=== PATIENT | male | born 2000 | race American Indian/Alaskan Native ===

== ENCOUNTER 2021-04-07 15:34 | Inpatient (IN) | payer SELFPAY ==
[2021-04-07] MEDS ORDERED: LORazepam 2 MG/ML VIAL ONE (15:59)
[2021-04-07] MEDS ORDERED: HALOPERIDOL LACTATE 5 MG/1 ML INJ ONE (15:59)
[2021-04-07] MEDS ORDERED: diphenhydrAMINE 50 MG/ML VIAL ONE (15:59)
[2021-04-07] MEDS ORDERED: diphenhydrAMINE 50 MG/ML VIAL IV ONE (16:07)
[2021-04-07] MEDS ORDERED: ZIPRASIDONE MESYLATE 20 MG VIAL IM ONE ×2 (16:07)
[2021-04-07] MEDS ORDERED: HALOPERIDOL LACTATE 5 MG/1 ML INJ IM PRN (16:07)
[2021-04-07] MEDS ORDERED: levETIRAcetam 1000 MG/NS 0.75% 1,000 MG/100 ML BAG IV ONE (16:07)
--- NOTE | 2021-04-07 16:08 | Emergency Department Report ---
ED General Adult HPI - General Chief complaint: Psych Stated complaint: psych Time Seen by Provider: 04/07/21 16:05 Source: patient, EMS (Verbal report received from emergency medical services. My EMS disc) Mode of arrival: Wheelchair Limitations: Altered Mental Status, Other (Psychosis) - History of Present Illness Initial comments: Patient is a 20-year-old gentleman. He is not known to myself previously. He is brought to the hospital by emergency medical services with an EMS articulated complaint of convulsions, and erratic behavior. EMS reports to myself that they were called for patient having nonspecific convulsive behavior. They report normal Accu-Chek in the field, and report that the patient is moving 4 extremities in the field, and protecting airway. In the emergency room, patient witnessed by myself and multiple staff members to have multiple writhing, and convulsive events. These entailed the patient twisting around the stretcher, pulling off leads, almost falling off onto the floor, and did not respond to verbal techniques, show of force, or chemical restraint. Patient advised to stop shaking, stop moving, as he represents a danger to himself and other people Patient was medicated initially with Haldol, Ativan, and Benadryl. He still continued to writhe, shake around, have intermittent episodes of cessation, in which he would communicate with ER staff, and then began to writhe and twist around in his ER stretcher He was then medicated with 20 mg of Geodon. In spite of this, he continued to writhe around, pull at leads, almost falling off of the stretcher, and in spite of being informed and requested to stop this activity, would not stop. The patient does not demonstrate decision-making capacity, and is clearly a danger to himself and others, as he is almost falling off of the stretcher, and requiring multiple individuals to restrain him physically, as he is pulling off leads, and thrashing and kicking at ER staff members. Given history of convulsive events, with intermittent periods of lucidity, uncertainty as to whether or not this patient has a toxic metabolic encephalopathy, intracranial hemorrhage, or time sensitive overdose, decision made to secure airway, to allow for acquisition of time sensitive diagnostic studies. The patient is thus intubated emergently for airway protection The patient was intubated without obvious complication. The patient presented initially as disorganized and psychotic, lacking decision- making capacity, and is not of sound mind. Given presentation involving erratic behavior, intermittent convulsions, lack of decision-making capacity, and need for acquisition of time sensitive diagnostic studies to exclude time sensitive medical conditions, patient required that airway be secured, in order to allow for therapeutic and diagnostic interventions to take place -: unknown - Related Data Allergies Allergy/AdvReac Type Severity Reaction Status Date / Time No Known Allergies Allergy Verified 04/07/21 16:02 ED Review of Systems ROS: Stated complaint: HIGH BLOOG SUGAR/PSYCHIATRIC BEHAVIOR Other details as noted in HPI Comment: Unobtainable due to pts medical conditions ED Physical Exam - General Limitations: Other (Psychosis, disorganized behavior) General appearance: anxious - Head Head exam: Present: atraumatic, normocephalic - Eye Eye exam: Present: normal appearance, PERRL, EOMI. Absent: nystagmus - ENT ENT exam: Present: normal exam, normal orophraynx, mucous membranes moist, normal external ear exam - Neck Neck exam: Present: normal inspection, full ROM. Absent: tenderness, meningismus - Respiratory Respiratory exam: Present: normal lung sounds bilaterally. Absent: respiratory distress, wheezes, rales, rhonchi, stridor, decreased breath sounds - Cardiovascular Cardiovascular Exam: Present: tachycardia, normal heart sounds. Absent: bradycardia, irregular rhythm, systolic murmur, diastolic murmur, rubs, gallop - GI/Abdominal GI/Abdominal exam: Present: soft, normal bowel sounds. Absent: distended, tenderness, guarding, rebound, rigid, pulsatile mass - Rectal Rectal exam: Present: normal inspection - exam: Present: normal inspection External exam: Present: normal external exam - Extremities Exam Extremities exam: Present: normal inspection, full ROM, other (2+ pulses noted in the bilateral upper and lower extremities. There is no palpable cord. negative Homans sign. Muscular compartments are soft. The pelvis is stable.). Absent: pedal edema, calf tenderness - Back Exam Back exam: Present: normal inspection, full ROM. Absent: tenderness, CVA tenderness (R), CVA tenderness (L), paraspinal tenderness, vertebral tenderness - Neurological Exam Neurological exam: Present: altered, other (There is no facial droop. The tongue is midline. 5 out of 5 strength in 4 extremities). Absent: motor sensory deficit - Psychiatric Psychiatric exam: Present: agitated, anxious - Skin Skin exam: Present: warm, dry, intact, normal color. Absent: rash ED Course Vital Signs 04/07/21 04/07/21 04/07/21 16:00 16:06 16:33 Temperature 99.2 F Pulse Rate 132 H 116 H Respiratory 22 17 Rate Blood Pressure 130/83 Blood Pressure 117/83 [Left] O2 Sat by Pulse 98 98 100 Oximetry 04/07/21 04/07/21 04/07/21 16:45 17:01 17:15 Temperature Pulse Rate 109 H 108 H 132 H Respiratory 20 20 22 Rate Blood Pressure 96/56 114/72 119/76 Blood Pressure [Left] O2 Sat by Pulse 100 100 100 Oximetry 04/07/21 04/07/21 04/07/21 17:43 17:45 18:01 Temperature Pulse Rate 99 H 97 H Respiratory 20 20 Rate Blood Pressure 132/90 132/90 117/81 Blood Pressure [Left] O2 Sat by Pulse 100 100 100 Oximetry 04/07/21 04/07/21 04/07/21 18:15 18:31 18:45 Temperature Pulse Rate 105 H 99 H 90 Respiratory 20 19 20 Rate Blood Pressure 131/91 118/74 120/75 Blood Pressure [Left] O2 Sat by Pulse 100 100 100 Oximetry 04/07/21 04/07/21 04/07/21 19:01 19:15 19:31 Temperature Pulse Rate 93 H 98 H 100 H Respiratory 20 20 20 Rate Blood Pressure 117/72 109/71 114/70 Blood Pressure [Left] O2 Sat by Pulse 100 99 100 Oximetry 04/07/21 04/07/21 04/07/21 19:45 20:01 20:15 Temperature Pulse Rate 96 H 93 H 90 Respiratory 20 20 20 Rate Blood Pressure 121/73 109/71 112/69 Blood Pressure [Left] O2 Sat by Pulse 100 100 100 Oximetry 04/07/21 04/07/21 04/07/21 20:31 20:45 21:01 Temperature Pulse Rate 89 105 H 134 H Respiratory 20 12 16 Rate Blood Pressure 122/79 142/89 143/99 Blood Pressure [Left] O2 Sat by Pulse 100 100 100 Oximetry 04/07/21 04/07/21 04/07/21 21:15 21:31 21:43 Temperature Pulse Rate 109 H 113 H 109 H Respiratory 20 20 Rate Blood Pressure 126/80 113/70 102/58 Blood Pressure [Left] O2 Sat by Pulse 100 100 100 Oximetry 04/07/21 04/07/21 04/07/21 21:45 22:00 22:01 Temperature 98.7 F Pulse Rate 105 H 110 H Respiratory 20 20 Rate Blood Pressure 102/58 105/59 Blood Pressure [Left] O2 Sat by Pulse 100 100 Oximetry 04/07/21 04/07/21 04/07/21 22:15 22:31 22:45 Temperature Pulse Rate 108 H 105 H 102 H Respiratory 20 20 20 Rate Blood Pressure 112/73 121/79 109/69 Blood Pressure [Left] O2 Sat by Pulse 100 100 100 Oximetry 04/07/21 04/07/21 04/07/21 23:01 23:15 23:31 Temperature Pulse Rate 104 H 102 H 105 H Respiratory 20 20 20 Rate Blood Pressure 108/72 109/72 110/70 Blood Pressure [Left] O2 Sat by Pulse 100 100 100 Oximetry 04/07/21 23:45 Temperature Pulse Rate 102 H Respiratory 20 Rate Blood Pressure 107/65 Blood Pressure [Left] O2 Sat by Pulse 100 Oximetry - Reevaluation(s) Reevaluation #1: 04/07/21 18:38 Differential diagnosis, including but not limited to: Seizure, psychogenic seizure, intracranial hemorrhage, electrolyte derangement, thyroid derangement, toxic encephalopathy, metabolic encephalopathy, pneumonia, urinary tract infection Partial seizure, large vessel occlusion Assessment and plan: 20-year-old gentleman presenting with episodes of intermittent convulsive behavior, followed by resolution, with conversant intervals, lacking decision-making capacity, and appropriate mental status, requiring intubation for acquisition of time sensitive diagnostic studies, and execution/implementation of necessary therapeutic interventions. CT scan of the brain, CT angiogram head and neck negative for acute findings. Laboratory studies thus far unremarkable, with exception of mild dehydration, elevated CK, hypokalemia, and the presence of marijuana in urine toxicology screen. Urinalysis nonactionable, antibiotics not required, chest x-ray clear. Patient to be admitted to the medical service/critical care unit for supportive care, contacted neurology on-call, Dr. Bay, discussed the patient's history, physical, overall plan of care, and clinical impression. Her recommendations are reviewed and appreciated. Contacted critical care physician on-call, Dr. Avila, who will follow in consultation, and arrange admission to the intensive care unit. Hospital physician, Dr. Bean, to admit patient to the medical service. IV fluids, potassium supplementation, Keppra load, propofol and fentanyl for sedation 04/07/21 19:03 Patient's sister Jane CABRERA ISABEL [phone], patient sister updated on plan of care, diagnostic studies, and clinical impression. She articulated understanding. All questions answered. - Intubation Sedative: Etomidate Mg Given: 20 Paralytic: Rocuronium Mg Given: 100 Laryngoscope: fiberoptic video scope Size: 4 Assist Device Used: fiberoptic device ET Tube Size: 7.5 Tube Secured Depth (cm): 23 Tube Secured Location: teeth Tube Placement Confirmation: visualized tube passing t, equal breath sounds bilat, no breath sounds over epi, confirmation by capnometr Patient Tolerated Procedure: well Intubation Complications: none Additional Comments: Patient induced with 20 mg of etomidate, paralyzed with 100 mg of rocuronium. Initial IV infiltrated, therefore, these medications required ordering twice. Patient placed on cardiac rehab nurse, pulse oximetry, blood pressure monitoring, and nasal cannula oxygen at 15 L/min. He also receives [id number] ventilation simultaneously. After induction and paralysis, video laryngoscopy performed with a curved S4 blade, and a 7.5 endotracheal tube was inserted into the trachea under direct visualization. There is appropriate end-tidal capnography color change. There were no obvious complications. Patient tolerated the procedure well. ED Medical Decision Making - Lab Data Result diagrams: 04/07/21 16:28 04/07/21 16:28 Vital Signs 04/07/21 16:45 Pulse Rate 109 H Blood Pressure 96/56 O2 Sat by Pulse 100 Oximetry Lab Results 04/07/21 04/07/21 04/07/21 Range/Units 15:51 16:28 16:28 WBC 7.2 (4.5-11.0) K/mm3 RBC 5.06 H (3.65-5.03) M/mm3 Hgb 13.3 (11.8-15.2) gm/dl Hct 42.2 (35.5-45.6) % MCV 83 L (84-94) fl MCH 26 L (28-32) pg MCHC 32 (32-34) % RDW 14.7 (13.2-15.2) % Plt Count 183 (140-440) K/mm3 Lymph % (Auto) 6.0 L (13.4-35.0) % [place] % (Auto) 7.4 H (0.0-7.3) % Eos % (Auto) 1.7 (0.0-4.3) % Baso % (Auto) 0.2 (0.0-1.8) % Lymph # (Auto) 0.4 L (1.2-5.4) K/mm3 [place] # (Auto) 0.5 (0.0-0.8) K/mm3 Eos # (Auto) 0.1 (0.0-0.4) K/mm3 Baso # (Auto) 0.0 (0.0-0.1) K/mm3 Seg Neutrophils % 84.7 H (40.0-70.0) % Seg Neutrophils # 6.1 (1.8-7.7) K/mm3 Sodium 139 (137-145) mmol/L Potassium 3.4 L (3.6-5.0) mmol/L Chloride 103.2 (98-107) mmol/L Carbon Dioxide 19 L (22-30) mmol/L Anion Gap 20 mmol/L BUN 8 L (9-20) mg/dL Creatinine 0.9 (0.8-1.3) mg/dL Estimated GFR > 60 ml/min BUN/Creatinine Ratio 9 % Glucose 89 (75-100) mg/dL POC Glucose 106 H (70-105) mg/dL Calcium 8.9 (8.4-10.2) mg/dL Magnesium 1.70 (1.7-2.3) mg/dL Total Bilirubin 0.20 (0.1-1.2) mg/dL AST 21 (5-40) units/L ALT 19 (7-56) units/L Alkaline Phosphatase 162 H (35-129) units/L Total Creatine Kinase 484 H (55-170) units/L Total Protein 7.1 (6.3-8.2) g/dL Albumin 4.6 (3.9-5) g/dL Albumin/Globulin Ratio 1.8 % TSH (0.270-4.200) mlU/mL Urine Color (Yellow) Urine Turbidity (Clear) Urine pH (5.0-7.0) Ur Specific [place] (1.003-1.030) Urine Protein (Negative) mg/dL Urine Glucose (UA) (Negative) mg/dL Urine Ketones (Negative) mg/dL Urine Blood (Negative) Urine Nitrite (Negative) Urine Bilirubin (Negative) Urine Urobilinogen (<2.0) mg/dL Ur Leukocyte Esterase (Negative) Urine WBC (Auto) (0.0-6.0) /HPF Urine RBC (Auto) (0.0-6.0) /HPF U Epithel Cells (Auto) (0-13.0) /HPF Urine Mucus /HPF Salicylates (2.8-20.0) mg/dL Urine Opiates Screen Urine Methadone Screen Acetaminophen (10.0-30.0) ug/mL Ur Barbiturates Screen Ur Phencyclidine Scrn Ur Amphetamines Screen U Benzodiazepines Scrn Urine Cocaine Screen U Marijuana (THC) Screen Drugs of Abuse Note Plasma/Serum Alcohol (0-0.07) % 04/07/21 04/07/21 04/07/21 Range/Units 16:28 16:28 16:28 WBC (4.5-11.0) K/mm3 RBC (3.65-5.03) M/mm3 Hgb (11.8-15.2) gm/dl Hct (35.5-45.6) % MCV (84-94) fl MCH (28-32) pg MCHC (32-34) % RDW (13.2-15.2) % Plt Count (140-440) K/mm3 Lymph % (Auto) (13.4-35.0) % [place] % (Auto) (0.0-7.3) % Eos % (Auto) (0.0-4.3) % Baso % (Auto) (0.0-1.8) % Lymph # (Auto) (1.2-5.4) K/mm3 [place] # (Auto) (0.0-0.8) K/mm3 Eos # (Auto) (0.0-0.4) K/mm3 Baso # (Auto) (0.0-0.1) K/mm3 Seg Neutrophils % (40.0-70.0) % Seg Neutrophils # (1.8-7.7) K/mm3 Sodium (137-145) mmol/L Potassium (3.6-5.0) mmol/L Chloride (98-107) mmol/L Carbon Dioxide (22-30) mmol/L Anion Gap mmol/L BUN (9-20) mg/dL Creatinine (0.8-1.3) mg/dL Estimated GFR ml/min BUN/Creatinine Ratio % Glucose (75-100) mg/dL POC Glucose (70-105) mg/dL Calcium (8.4-10.2) mg/dL Magnesium (1.7-2.3) mg/dL Total Bilirubin (0.1-1.2) mg/dL AST (5-40) units/L ALT (7-56) units/L Alkaline Phosphatase (35-129) units/L Total Creatine Kinase (55-170) units/L Total Protein (6.3-8.2) g/dL Albumin (3.9-5) g/dL Albumin/Globulin Ratio % TSH 1.370 (0.270-4.200) mlU/mL Urine Color (Yellow) Urine Turbidity (Clear) Urine pH (5.0-7.0) Ur Specific [place] (1.003-1.030) Urine Protein (Negative) mg/dL Urine Glucose (UA) (Negative) mg/dL Urine Ketones (Negative) mg/dL Urine Blood (Negative) Urine Nitrite (Negative) Urine Bilirubin (Negative) Urine Urobilinogen (<2.0) mg/dL Ur Leukocyte Esterase (Negative) Urine WBC (Auto) (0.0-6.0) /HPF Urine RBC (Auto) (0.0-6.0) /HPF U Epithel Cells (Auto) (0-13.0) /HPF Urine Mucus /HPF Salicylates < 0.3 L (2.8-20.0) mg/dL Urine Opiates Screen Urine Methadone Screen Acetaminophen 5.0 L (10.0-30.0) ug/mL Ur Barbiturates Screen Ur Phencyclidine Scrn Ur Amphetamines Screen U Benzodiazepines Scrn Urine Cocaine Screen U Marijuana (THC) Screen Drugs of Abuse Note Plasma/Serum Alcohol (0-0.07) % 04/07/21 04/07/21 04/07/21 Range/Units 16:28 Unknown Unknown WBC (4.5-11.0) K/mm3 RBC (3.65-5.03) M/mm3 Hgb (11.8-15.2) gm/dl Hct (35.5-45.6) % MCV (84-94) fl MCH (28-32) pg MCHC (32-34) % RDW (13.2-15.2) % Plt Count (140-440) K/mm3 Lymph % (Auto) (13.4-35.0) % [place] % (Auto) (0.0-7.3) % Eos % (Auto) (0.0-4.3) % Baso % (Auto) (0.0-1.8) % Lymph # (Auto) (1.2-5.4) K/mm3 [place] # (Auto) (0.0-0.8) K/mm3 Eos # (Auto) (0.0-0.4) K/mm3 Baso # (Auto) (0.0-0.1) K/mm3 Seg Neutrophils % (40.0-70.0) % Seg Neutrophils # (1.8-7.7) K/mm3 Sodium (137-145) mmol/L Potassium (3.6-5.0) mmol/L Chloride (98-107) mmol/L Carbon Dioxide (22-30) mmol/L Anion Gap mmol/L BUN (9-20) mg/dL Creatinine (0.8-1.3) mg/dL Estimated GFR ml/min BUN/Creatinine Ratio % Glucose (75-100) mg/dL POC Glucose (70-105) mg/dL Calcium (8.4-10.2) mg/dL Magnesium (1.7-2.3) mg/dL Total Bilirubin (0.1-1.2) mg/dL AST (5-40) units/L ALT (7-56) units/L Alkaline Phosphatase (35-129) units/L Total Creatine Kinase (55-170) units/L Total Protein (6.3-8.2) g/dL Albumin (3.9-5) g/dL Albumin/Globulin Ratio % TSH (0.270-4.200) mlU/mL Urine Color Yellow (Yellow) Urine Turbidity Cloudy (Clear) Urine pH 6.0 (5.0-7.0) Ur Specific [place] 1.021 (1.003-1.030) Urine Protein 100 mg/dl (Negative) mg/dL Urine Glucose (UA) Neg (Negative) mg/dL Urine Ketones Neg (Negative) mg/dL Urine Blood Neg (Negative) Urine Nitrite Neg (Negative) Urine Bilirubin Neg (Negative) Urine Urobilinogen < 2.0 (<2.0) mg/dL Ur Leukocyte Esterase Neg (Negative) Urine WBC (Auto) 2.0 (0.0-6.0) /HPF Urine RBC (Auto) 5.0 (0.0-6.0) /HPF U Epithel Cells (Auto) 1.0 (0-13.0) /HPF Urine Mucus 2+ /HPF Salicylates (2.8-20.0) mg/dL Urine Opiates Screen Negative Urine Methadone Screen Negative Acetaminophen (10.0-30.0) ug/mL Ur Barbiturates Screen Positive Ur Phencyclidine Scrn Negative Ur Amphetamines Screen Negative U Benzodiazepines Scrn Negative Urine Cocaine Screen Negative U Marijuana (THC) Screen Positive Drugs of Abuse Note Disclamer Plasma/Serum Alcohol < 0.01 (0-0.07) % - EKG Data -: EKG Interpreted by [place] EKG shows normal: sinus rhythm Rate: tachycardia - EKG Data When compared to previous EKG there are: previous EKG unavailable 04/07/21 18:29 The EKG is interpreted at 16: 54 Sinus rhythm, tachycardia, rate 125 bpm. Rightward axis deviation. Normal P wave axis. Early repolarization. Abnormal EKG. Not a STEMI. There is no prior for comparison. - Radiology Data Radiology results: pending, report reviewed, image reviewed CT HEAD WITHOUT CONTRAST INDICATION / CLINICAL INFORMATION: Medical Clearance Psych. TECHNIQUE: Axial imaging performed from the skull apex through the skull base without the use of contrast. Sagittal and coronal reformatted images. All CT scans at this location are performed using CT dose reduction for ALARA by means of automated exposure control. COMPARISON: None available. FINDINGS: CEREBRAL PARENCHYMA: No significant abnormality. No acute territorial infarct. HEMORRHAGE: None. EXTRA-AXIAL SPACES: Normal in size and morphology for the patient's age. VENTRICULAR SYSTEM: Normal in size and morphology for the patient's age. MIDLINE SHIFT OR HERNIATION: None. CEREBELLUM / BRAINSTEM: No significant abnormality. CALVARIUM: No significant abnormality. ORBITS: Normal as visualized. PARANASAL SINUSES / MASTOID AIR CELLS: Normal as visualized. SOFT TISSUES of HEAD: No significant abnormality. ADDITIONAL FINDINGS: None. I MPRESSION: No acute intracranial abnormality. Signer Name: Baltazar Muñiz Jr, MD Signed: 04/07/2021 5:04 PM Workstation Name: [id number] CT angio neck INDICATION / CLINICAL INFORMATION: 20 years Male; ams, convulsive events [id number] 100ml. TECHNIQUE: Thin cut axial images obtained through the head during IV bolus contrast administration. Sagittal, coronal, and 3 plane MIP reconstructions performed by the technologist. NASCET type criteria used evaluate stenoses. All CT scans at this location are performed using CT dose reduction for ALARA by means of automated exposure control. . COMPARISON: None available. FINDINGS: ARCH: Normal aortic arch branching suggested. CAROTID ARTERIES: The visualized common and internal carotid arteries are widely patent. VERTEBRAL ARTERIES: Codominant vertebral system seen. No significant stenosis appreciated. ADDITIONAL FINDINGS: Patient is intubated. There are secretions in the naso and oropharynx. NG tube is in place. IMPRESSION: 1. No significant stenosis appreciated on this CTA of the neck. 2. Note, this constellation of studies does not exclude ischemia. Follow-up with diffusion imaging by MRI, as clinically warranted. Signer Name: Nikita Torre MD, III Signed: 04/07/2021 5:[address] angio head INDICATION / CLINICAL INFORMATION: 20 years Male; ams, convulsive events [id number] 100ml. TECHNIQUE: Thin cut axial images obtained through the head during IV bolus contrast administration. Sagittal, coronal, and 3 plane MIP reconstructions performed by the technologist. NASCET type criteria used evaluate stenoses. Automated exposure control utilized for radiation reduction purposes. . COMPARISON: None available. FINDINGS: INTERNAL CAROTID ARTERIES: No significant narrowing appreciated. VERTEBROBASILAR SYSTEM: No significant na rrowing appreciated. DISTAL BRANCHES: Distal branches of the anterior, middle, and posterior cerebral arteries are fairly symmetric in appearance and number. ANEURYSM: None identified. ADDITIONAL FINDINGS: Patient is intubated. NG tube is in place. IMPRESSION: No significant abnormality on this CTA of the head. Signer Name: Nikita Torre MD, III Signed: 04/07/2021 5:09 PM Workstation Name: [id number] CHEST 1 VIEW 04/07/2021 4:36 PM INDICATION / CLINICAL INFORMATION: ETT placement. COMPARISON: None available. FINDINGS: SUPPORT DEVICES: Endotracheal tube terminates approximately 3.8 cm above lopez. HEART / MEDIASTINUM: No significant abnormality. LUNGS / PLEURA: No significant pulmonary or pleural abnormality. No pneumothorax. ADDITIONAL FINDINGS: No significant additional findings. IMPRESSION: 1. Endotracheal tube in expected position. Signer Name: Nishant Ramos MD Signed: 04/07/2021 3:51 PM Workstation Name: [email or web address] Critical Care Time: Yes Critical care time in (mins) excluding proc time.: 74 Critical care attestation.: If time is entered above; I have spent that time in minutes in the direct care of this critically ill patient, excluding procedure time. Critical Care Time: Critical care time includes multiple bedside reevaluations, interpretation of laboratory studies, radiology studies, discussion with multiple consulting services, including hospital medicine, critical care, neurology. This does not include procedure time ED Disposition Clinical Impression: Convulsion, Elevated CK, Hypokalemia, Dehydration, Acute encephalopathy Disposition: 09 ADMITTED INPATIENT Is pt being admited?: Yes Does the pt Need Aspirin: No Condition: Critical
[2021-04-07] MEDS: LORazepam 2 MG/ML VIAL IM PRN ×2 (16:10→21:03)
[2021-04-07] MEDS ORDERED: ROCURONIUM 50 MG/5 ML INJ IV ONE ×3 (16:22→16:32)
[2021-04-07] MEDS ORDERED: ETOMIDATE 20 MG/10 ML INJ IV ONE ×3 (16:24→16:32)
[2021-04-07] MEDS ORDERED: SODIUM CHLORIDE 0.9% 1000 ML 1,000 ML IV ONE (16:29)
[2021-04-07] MEDS ORDERED: LIP THERAPY VASELINE TP PRN (16:29)
[2021-04-07] MEDS ORDERED: fentaNYL 100 MCG/2 ML INJ IV PRN (16:29)
[2021-04-07] MEDS ORDERED: MINERAL OIL/PETROLATUM, WHITE OPHTH OINT 3.5 GM OU PRN (16:29)
[2021-04-07 16:50] LABS: Basophils % (Auto) 0.2 % (0.0-1.8); Eosinophils # (Auto) 0.1 K/mm3 (0.0-0.4); Eosinophils % (Auto) 1.7 % (0.0-4.3); Hematocrit 42.2 % (35.5-45.6); Hemoglobin 13.3 gm/dl (11.8-15.2); Lymphocytes # (Auto) 0.4 K/mm3 (1.2-5.4); Mean Corpuscular HGB Conc 32 % (32-34); Mean Corpuscular Volume 83 fl (84-94); Monocytes # (Auto) 0.5 K/mm3 (0.0-0.8); Monocytes % (Auto) 7.4 % (0.0-7.3); Platelet Count 183 K/mm3 (140-440); Red Blood Count 5.06 M/mm3 (3.65-5.03); Red Cell Distribution Width 14.7 % (13.2-15.2)
--- NOTE | 2021-04-07 16:55 | XRay Report ---
CHEST 1 VIEW 04/07/2021 4:36 PM INDICATION / CLINICAL INFORMATION: ETT placement. COMPARISON: None available. FINDINGS: SUPPORT DEVICES: Endotracheal tube terminates approximately 3.8 cm above lopez. HEART / MEDIASTINUM: No significant abnormality. LUNGS / PLEURA: No significant pulmonary or pleural abnormality. No pneumothorax. ADDITIONAL FINDINGS: No significant additional findings. IMPRESSION: 1. Endotracheal tube in expected position. Signer Name: Nishant Ramos MD Signed: 04/07/2021 4:51 PM Workstation Name: [id number]
[2021-04-07 17:04] LABS: Alanine Aminotransferase 19 units/L (7-56); Albumin 4.6 g/dL (3.9-5); BUN/Creatinine Ratio 9; Blood Urea Nitrogen 8 mg/dL (9-20); Calcium 8.9 mg/dL (8.4-10.2); Hemolysis Index 30
[2021-04-07 17:12] LABS: Bilirubin,Urine NEG (Negative); Blood,Urine NEG (Negative); Color,Urine Yellow (Yellow); Mucus,Urine 2+ /HPF; Urobilinogen,Urine < 2.0 mg/dL (<2.0)
[2021-04-07 17:13] LABS: Amphetamine Screen,Urine Negative; Benzodiazepines Screen,Urine Negative; Cocaine Screen,Urine Negative; Methadone Screen,Urine Negative; Opiate Screen,Urine Negative
--- NOTE | 2021-04-07 17:15 | Emergency Department Report ---
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
[2021-04-07 17:24] LABS: Cannabinoid Screen,Urine Positive
[2021-04-07] MEDS ORDERED: levETIRAcetam 1,000 MG in DEXTROSE 5% IN WATER 100 ML IV ONE (18:00)
--- NOTE | 2021-04-07 18:08 | Cat Scan Report ---
CT HEAD WITHOUT CONTRAST INDICATION / CLINICAL INFORMATION: Medical Clearance Psych. TECHNIQUE: Axial imaging performed from the skull apex through the skull base without the use of cont rast. Sagittal and coronal reformatted images. All CT scans at this location are performed using CT dose reduction for ALARA by means of automated exposure control. COMPARISON: None available. FINDINGS: CEREBRAL PARENCHYMA: No significant abnormality. No acute territorial infarct. HEMORRHAGE: None. EXTRA-AXIAL SPACES: Normal in size and morphology for the patient's age. VENTRICULAR SYSTEM: Normal in size and morphology for the patient's age. MIDLINE SHIFT OR HERNIATION: None. CEREBELLUM / BRAINSTEM: No significant abnormality. CALVARIUM: No significant abnormality. ORBITS: Normal as visualized. PARANASAL SINUSES / MASTOID AIR CELLS: Normal as visualized. SOFT TISSUES of HEAD: No significant abnormality. ADDITIONAL FINDINGS: None. IMPRESSION: No acute intracranial abnormality. Signer Name: Baltazar Muñiz Jr, MD Signed: 04/07/2021 6:04 PM Workstation Name: [id number]
--- NOTE | 2021-04-07 18:14 | Cat Scan Report ---
CT angio head INDICATION / CLINICAL INFORMATION: 20 years Male; ams, convulsive events [id number] 100ml. TECHNIQUE: Thin cut axial images obtained through the head during IV bolus contrast administration. S agittal, coronal, and 3 plane MIP reconstructions performed by the technologist. NASCET type criteria used evaluate stenoses. Automated exposure control utilized for radiation reduction purposes. . COMPARISON: None available. FINDINGS: INTERNAL CAROTID ARTERIES: No significant narrowing appreciated. VERTEBROBASILAR SYSTEM: No significant narrowing appreciated. DISTAL BRANCHES: Distal branches of the anterior, middle, and posterior cerebral arteries are fairly symmetric in appearance and number. ANEURYSM: None identified. ADDITIONAL FINDINGS: Patient is intubated. NG tube is in place. IMPRESSION: No significant abnormality on this CTA of the head. Signer Name: Nikita Torre MD, III Signed: 04/07/2021 6:09 PM Workstation Name: [id number]
--- NOTE | 2021-04-07 18:17 | Cat Scan Report ---
CT angio neck INDICATION / CLINICAL INFORMATION: 20 years Male; ams, convulsive events [id number] 100ml. TECHNIQUE: Thin cut axial images obtained through the head during IV bolus contrast administration. S agittal, coronal, and 3 plane MIP reconstructions performed by the technologist. NASCET type criteria used evaluate stenoses. All CT scans at this location are performed using CT dose reduction for ALAR A by means of automated exposure control. . COMPARISON: None available. FINDINGS: ARCH: Normal aortic arch branching suggested. CAROTID ARTERIES: The visualized common and internal carotid arteries are widely patent. VERTEBRAL ARTERIES: Codominant vertebral system seen. No significant stenosis appreciated. ADDITIONAL FINDINGS: Patient is intubated. There are secretions in the naso and oropharynx. NG tube i s in place. IMPRESSION: 1. No significant stenosis appreciated on this CTA of the neck. 2. Note, this constellation of studies does not exclude ischemia. Follow-up with diffusion imaging by MRI, as clinically warranted. Signer Name: Nikita Torre MD, III Signed: 04/07/2021 6:12 PM Workstation Name: [id number]
[2021-04-07 18:27] LABS: ABG Base Excess -2.2 mmol/L (-2.0-3.0); ABG HCO3 22.6 mmol/L (20.0-26.0); ABG Methemoglobin 0.4 % (0.0-1.5); ABG Oxygen Saturation 99.6 % (95.0-99.0); ABG PCO2 38.7 mm Hg; ABG PH 7.383 pH Units (7.350-7.450); ABG PO2 390.1 mm Hg (80.0-90.0)
[2021-04-07] MEDS: POTASSIUM CHLORIDE 10 MEQ 10 MEQ/100 ML BAG IV SCH ×4 (18:34→21:54)
[2021-04-07] MEDS: fentaNYL DRIP Premix 2,000 MCG/100 ML BAG IV SCH (18:35)
--- NOTE | 2021-04-07 18:42 | History and Physical Report ---
History of Present Illness Chief complaint: He wont stop shaking History of present illness: 20 YO Male with no PMH presents to ED for evaluation. Patient is intubated and on ventilatory support at the time my evaluation is unable to provide history. Patient day from EMS staff, ED staff. As per staff the patient was found to have increased confusion with concomitant witnessed seizure activity. EMS was notified and upon arrival the patient was found to be in distress and subsequent transported to [facility] for further care and evaluation of the aforementioned symptoms. The patient was seen and evaluated in the emergency department. All lab and imaging studies reviewed. Patient found to have convulsive activity after administration of antiepileptic therapy. Patient did inability to protect his airway and was subsequently intubated and placed on ventilatory support. No reports of fever, chills, chest pain, palpitation productive cough, skin rash, recent ill contacts, prolonged travel/immobility, unilateral leg swelling, calf pain, individual/family history of DVT/PE/bleeding/blood clotting disorders, or known exposure to COVID-19. No prior admission for review. No medication listed at time of admission for reconciliation. Critical care team consulted in the emergency department. Past History Past Medical History: seizures Past Surgical History: No surgical history, Other (Reviewed) Social history: single. denies: smoking, alcohol abuse Family history: hypertension Medications and Allergies Allergies Allergy/AdvReac Type Severity Reaction Status Date / Time No Known Allergies Allergy Verified 04/07/21 16:02 Active Meds: Active Medications Famotidine (Famotidine 20 Mg/2 Ml Inj) 20 mg IV BID JUSTIN Fentanyl (Fentanyl 100 Mcg/2 Ml Inj) 50 mcg IV Q10MIN PRN PRN Reason: ANALGESIA Haloperidol Lactate (Haloperidol Lactate 5 Mg/1 Ml Inj) 5 mg IM Q6HR PRN PRN Reason: Agitation Last Admin: 04/07/21 16:10 Dose: 5 mg Documented by: Hydrophilic Ointment (Lip Therapy Vaseline) 1 applic TP Q2HR PRN PRN Reason: Dry Lips Propofol (Diprivan 10 Mg/Ml) 1,000 mg in 100 mls @ 13.064 mls/hr IV TITR JUSTIN; Protocol Last Admin: 04/07/21 18:39 Dose: 50 mcg/kg/min, 21.773 mls/hr Documented by: Fentanyl Citrate (Fentanyl Drip Premix) 2,000 mcg in 100 mls @ 3.629 mls/hr IV TITR JUSTIN; Protocol Last Admin: 04/07/21 18:35 Dose: 1 mcg/kg/hr, 3.629 mls/hr Documented by: Potassium Chloride (Kcl 10meq/100ml) 10 meq in 100 mls @ 100 mls/hr IV Q1H JUSTIN Stop: 04/07/21 21:59 Last Admin: 04/07/21 18:34 Dose: 100 mls/hr Documented by: Lorazepam (Lorazepam 2 Mg/Ml Vial) 2 mg IM Q4HR PRN PRN Reason: Agitation Last Admin: 04/07/21 16:10 Dose: 2 mg Documented by: Multi-Ingred Cream/Lotion/Oil/Oint (Mineral Oil/Petrolatum, White Ophth Oint 3.5 Gm) 1 applic OU Q4HR PRN PRN Reason: Dry Eye(s) Senna/Docusate Sodium (Sennosides/Docusate Sodium 8.6/50 Mg Tab) 1 tab FEEDTUBE BID JUSTIN Review of Systems ROS unobtainable: due to endotracheal tube, due to mental status Exam - Constitutional Vitals: Temp Pulse Resp BP Pulse Ox 109 H 96/56 100 04/07/21 16:45 04/07/21 16:45 04/07/21 16:45 General appearance: Present: mild distress - EENT Eyes: Present: PERRL ENT: hearing intact, clear oral mucosa - Neck Neck: Present: supple, normal ROM - Respiratory Respiratory effort: normal Respiratory: bilateral: diminished - Cardiovascular Heart Sounds: Present: S1 & S2. Absent: rub, click - Extremities Extremities: pulses symmetrical, No edema Peripheral Pulses: within normal limits - Abdominal General gastrointestinal: Present: soft, non-tender, non-distended, normal bowel sounds Male genitourinary: Present: normal - Integumentary Integumentary: Present: clear, warm, dry - Musculoskeletal Musculoskeletal: gait normal, strength equal bilaterally - Psychiatric Psychiatric: no appropriate mood/affect, no intact judgment & insight, no memory intact, agitated - Neurologic Neurologic: CNII-XII intact, moves all extremities Results - Labs CBC & Chem 7: 04/07/21 16:28 04/07/21 16:28 Labs: Abnormal lab results 04/07/21 04/07/21 04/07/21 Range/Units 15:51 16:28 16:28 RBC 5.06 H (3.65-5.03) M/mm3 MCV 83 L (84-94) fl MCH 26 L (28-32) pg Lymph % (Auto) 6.0 L (13.4-35.0) % [place] % (Auto) 7.4 H (0.0-7.3) % Lymph # (Auto) 0.4 L (1.2-5.4) K/mm3 Seg Neutrophils % 84.7 H (40.0-70.0) % ABG pO2 (80.0-90.0) mm Hg ABG O2 Saturation (95.0-99.0) % ABG Base Excess (-2.0-3.0) mmol/L ABG Hemoglobin (14.0-18.0) gm/dl Potassium 3.4 L (3.6-5.0) mmol/L Carbon Dioxide 19 L (22-30) mmol/L BUN 8 L (9-20) mg/dL POC Glucose 106 H (70-105) mg/dL Alkaline Phosphatase 162 H (35-129) units/L Total Creatine Kinase 484 H (55-170) units/L Salicylates (2.8-20.0) mg/dL Acetaminophen (10.0-30.0) ug/mL 04/07/21 04/07/21 04/07/21 Range/Units 16:28 16:28 18:00 RBC (3.65-5.03) M/mm3 MCV (84-94) fl MCH (28-32) pg Lymph % (Auto) (13.4-35.0) % [place] % (Auto) (0.0-7.3) % Lymph # (Auto) (1.2-5.4) K/mm3 Seg Neutrophils % (40.0-70.0) % ABG pO2 390.1 H (80.0-90.0) mm Hg ABG O2 Saturation 99.6 H (95.0-99.0) % ABG Base Excess -2.2 L (-2.0-3.0) mmol/L ABG Hemoglobin 13.1 L (14.0-18.0) gm/dl Potassium (3.6-5.0) mmol/L Carbon Dioxide (22-30) mmol/L BUN (9-20) mg/dL POC Glucose (70-105) mg/dL Alkaline Phosphatase (35-129) units/L Total Creatine Kinase (55-170) units/L Salicylates < 0.3 L (2.8-20.0) mg/dL Acetaminophen 5.0 L (10.0-30.0) ug/mL Assessment and Plan - Patient Problems (1) Acute respiratory failure Current Visit: Yes Status: Acute Qualifiers: Respiratory failure complication: hypoxia Qualified Code(s): J96.01 - Acute respiratory failure with hypoxia Plan to address problem: Patient intubated and placed on ventilatory support, daily ABG, spontaneous breathing trial in a.m., wean vent as tolerated, critical care team consulted. The high probability of a clinically significant, sudden or life threatening deterioration of the [neuro, pulmonary] system(s) required my full and direct attention, intervention and personal management. The aggregate critical care time was [65] minutes. This time is in addition to time spent performing reported procedures but includes the following: [x] Data Review and interpretation [x] Patient assessment and monitoring of vital signs [x] Documentation [x] Medication orders and management (2) Status epilepticus Current Visit: Yes Status: Acute Plan to address problem: Patient treated with Keppra loading 1 g in the emergency department, Keppra therapy twice daily, supportive care, seizure precautions. (3) Acute encephalopathy Current Visit: Yes Status: Acute Plan to address problem: Supportive care, neuro check, continue medical management. CT head, CTA head/CTA neck. (4) DVT prophylaxis Current Visit: Yes Status: Acute Plan to address problem: SCDs bilateral lower extremities while in bed
[2021-04-07] MEDS ORDERED: oxyCODONE /ACETAMINOPHEN 5-325MG TAB PO PRN (18:44)
[2021-04-07] MEDS ORDERED: HYDROmorphone 1 MG/1 ML INJ IV PRN (18:44)
[2021-04-07] MEDS ORDERED: ALBUTEROL 2.5 MG/3 ML NEBU IH PRN (18:44)
[2021-04-07] MEDS ORDERED: ACETAMINOPHEN 650 MG RECT SUPP PR PRN (18:44)
[2021-04-07] MEDS: FAMOTIDINE 20 MG/2 ML INJ IV SCH (21:55)
[2021-04-07] MEDS: SENNOSIDES/DOCUSATE SODIUM 8.6/50 MG TAB FEEDTUBE SCH (21:55)
[2021-04-08] MEDS ORDERED: ROCURONIUM 50 MG/5 ML INJ IV ONE (00:24)
[2021-04-08] MEDS ORDERED: ETOMIDATE 20 MG/10 ML INJ IV ONE (00:24)
--- NOTE | 2021-04-08 04:35 | XRay Report ---
XR chest 1V ap INDICATION / CLINICAL INFORMATION: follow up respiratory failure. COMPARISON: Radiograph from yesterday. FINDINGS: SUPPORT DEVICES: Unchanged. HEART /PULMONARY VASCULATURE: Unchanged. LUNGS / PLEURA: No significant pulmonary or pleural abnormality. No pneumothorax. IMPRESSION: 1. No acute chest process. No significant interval change. Signer Name: Geremias Cruz MD Signed: 04/08/2021 4:31 AM Workstation Name: [id number]
[2021-04-08 05:23] LABS: Basophils % (Auto) 0.4 % (0.0-1.8); Eosinophils # (Auto) 0.1 K/mm3 (0.0-0.4); Eosinophils % (Auto) 1.8 % (0.0-4.3); Hematocrit 40.4 % (35.5-45.6); Hemoglobin 12.8 gm/dl (11.8-15.2); Lymphocytes # (Auto) 0.9 K/mm3 (1.2-5.4); Lymphocytes % (Auto) 14.7 % (13.4-35.0); Mean Corpuscular HGB Conc 32 % (32-34); Mean Corpuscular Volume 83 fl (84-94); Monocytes # (Auto) 0.8 K/mm3 (0.0-0.8); Monocytes % (Auto) 13.1 % (0.0-7.3); Platelet Count 173 K/mm3 (140-440); Red Blood Count 4.87 M/mm3 (3.65-5.03); Red Cell Distribution Width 14.8 % (13.2-15.2)
[2021-04-08 05:44] LABS: Alanine Aminotransferase 14 units/L (7-56); Albumin 3.9 g/dL (3.9-5); BUN/Creatinine Ratio 7; Blood Urea Nitrogen 7 mg/dL (9-20); Calcium 8.8 mg/dL (8.4-10.2); Hemolysis Index 6
[2021-04-08 06:25] LABS: ABG Base Excess -2.2 mmol/L (-2.0-3.0); ABG HCO3 22.6 mmol/L (20.0-26.0); ABG Methemoglobin 0.4 % (0.0-1.5); ABG Oxygen Saturation 96.5 % (95.0-99.0); ABG PH 7.382 pH Units (7.350-7.450); ABG PO2 81.5 mm Hg (80.0-90.0)
[2021-04-08] MEDS: FAMOTIDINE 20 MG/2 ML INJ IV SCH ×2 (09:43→21:10)
[2021-04-08] MEDS: SENNOSIDES/DOCUSATE SODIUM 8.6/50 MG TAB FEEDTUBE SCH ×2 (09:44→21:10)
--- NOTE | 2021-04-08 10:01 | Consultation ---
History of Present Illness Consult date: 04/08/21 Chief complaint: seizure History of present illness: History of present illness: 20 YO Male with no PMH presents to ED for evaluation. Patient is intubated and on ventilatory support at the time my evaluation is unable to provide history. Patient day from EMS staff, ED staff. As per staff the patient was found to have increased confusion with concomitant witnessed seizure activity. EMS was notified and upon arrival the patient was found to be in distress and subsequent transported to [facility] for further care and evaluation of the aforementioned symptoms. The patient was seen and evaluated in the emergency department. All lab and imaging studies reviewed. Patient found to have convulsive activity after administration of antiepileptic therapy. Patient did inability to protect his airway and was subsequently intubated and placed on ventilatory support. No reports of fever, chills, chest pain, palpitation productive cough, skin rash, recent ill contacts, prolonged travel/immobility, unilateral leg swelling, calf pain, individual/family history of DVT/PE/bleeding/blood clotting disorders, or known exposure to COVID-19. No prior admission for review. No medication listed at time of admission for reconciliation. Critical care team consulted in the emergency department. The patient is intubated . Some movement seen on Video. Past History Past Medical History: seizures Past Surgical History: No surgical history, Other (Reviewed) Social history: single. denies: smoking, alcohol abuse Family history: hypertension Medications and Allergies Allergies Allergy/AdvReac Type Severity Reaction Status Date / Time No Known Allergies Allergy Verified 04/07/21 16:02 Home Medications Medication Instructions Recorded Confirmed Last Taken Type Carbamazepine ER 2 - 3 cap PO QAM&QHS 04/08/21 04/08/21 Unknown History Phenytoin Sodium Extended 1 cap PO TID 04/08/21 04/08/21 Unknown History Zonisamide 3 cap PO Q24HR 04/08/21 04/08/21 Unknown History Active Meds: Active Medications Acetaminophen (Acetaminophen 650 Mg Rect Supp) 650 mg MN Q6H PRN PRN Reason: Pain MILD(1-3)/Fever >100.5/FRANCIS Albuterol (Albuterol 2.5 Mg/3 Ml Nebu) 2.5 mg IH Q3HRT PRN PRN Reason: Shortness Of Breath Dextrose (Dextrose 50% In Water (25gm) 50 Ml Syringe) 50 ml IV Q30MIN PRN; Prot ocol PRN Reason: Hypoglycemia Famotidine (Famotidine 20 Mg/2 Ml Inj) 20 mg IV BID [facility] Last Admin: 04/08/21 09:43 Dose: 20 mg Documented by: Fentanyl (Fentanyl 100 Mcg/2 Ml Inj) 50 mcg IV Q10MIN PRN PRN Reason: ANALGESIA Last Admin: 04/07/21 18:43 Dose: 50 mcg Documented by: Haloperidol Lactate (Haloperidol Lactate 5 Mg/1 Ml Inj) 5 mg IM Q6HR PRN PRN Reason: Agitation Last Admin: 04/07/21 16:10 Dose: 5 mg Documented by: Hydromorphone HCl (Hydromorphone 1 Mg/1 Ml Inj) 0.5 mg IV Q23H PRN PRN Reason: Pain , Severe (7-10) Hydrophilic Ointment (Lip Therapy Vaseline) 1 applic TP Q2HR PRN PRN Reason: Dry Lips Propofol (Diprivan 10 Mg/Ml) 1,000 mg in 100 mls @ 13.064 mls/hr IV TITR [facility]; Protocol Last Admin: 04/08/21 05:52 Dose: 40 mcg/kg/min, 17.418 mls/hr Documented by: Fentanyl Citrate (Fentanyl Drip Premix) 2,000 mcg in 100 mls @ 3.629 mls/hr IV TITR [facility]; Protocol Last Admin: 04/07/21 18:35 Dose: 1 mcg/kg/hr, 3.629 mls/hr Documented by: Lorazepam (Lorazepam 2 Mg/Ml Vial) 2 mg IM Q4HR PRN PRN Reason: Agitation Last Admin: 04/07/21 21:03 Dose: 2 mg Documented by: Multi-Ingred Cream/Lotion/Oil/Oint (Mineral Oil/Petrolatum, White Ophth Oint 3.5 Gm) 1 applic OU Q4HR PRN PRN Reason: Dry Eye(s) Oxycodone/Acetaminophen (Oxycodone /Acetaminophen 5-325mg Tab) 1 tab PO Q16H PRN PRN Reason: Pain, Moderate (4-6) Senna/Docusate Sodium (Sennosides/Docusate Sodium 8.6/50 Mg Tab) 1 tab FEEDTUBE BID [facility] Last Admin: 04/08/21 09:44 Dose: Not Given Documented by: Sodium Chloride (Sodium Chloride 0.9% 10 Ml Flush Syringe) 10 ml IV BID JUSTIN Last Admin: 04/08/21 09:44 Dose: 10 ml Documented by: Sodium Chloride (Sodium Chloride 0.9% 10 Ml Flush Syringe) 10 ml IV PRN PRN PRN Reason: LINE FLUSH Physical Examination - Vital Signs Vital Signs: Vital Signs Pulse Ox 98 04/07/21 16:00 - Physical Exam Narrative exam: The patient is intubated , Gag is present . Move extremity with Movement . Results - Laboratory Findings CBC and BMP: 04/08/21 04:19 04/08/21 04:19 Abnormal Lab Findings: Abnormal Labs 04/07/21 04/07/21 04/07/21 15:51 16:28 16:28 RBC 5.06 H MCV 83 L MCH 26 L Lymph % (Auto) 6.0 L [place] % (Auto) 7.4 H Lymph # (Auto) 0.4 L Seg Neutrophils % 84.7 H ABG pO2 ABG O2 Saturation ABG Base Excess ABG Hemoglobin Oxyhemoglobin Sodium Potassium 3.4 L Carbon Dioxide 19 L BUN 8 L POC Glucose 106 H Alkaline Phosphatase 162 H Total Creatine Kinase 484 H Salicylates Acetaminophen 04/07/21 04/07/21 04/07/21 16:28 16:28 18:00 RBC MCV MCH Lymph % (Auto) [place] % (Auto) Lymph # (Auto) Seg Neutrophils % ABG pO2 390.1 H ABG O2 Saturation 99.6 H ABG Base Excess -2.2 L ABG Hemoglobin 13.1 L Oxyhemoglobin Sodium Potassium Carbon Dioxide BUN POC Glucose Alkaline Phosphatase Total Creatine Kinase Salicylates < 0.3 L Acetaminophen 5.0 L 04/08/21 04/08/21 04/08/21 04:19 04:19 04:30 RBC MCV 83 L MCH 26 L Lymph % (Auto) [place] % (Auto) 13.1 H Lymph # (Auto) 0.9 L Seg Neutrophils % ABG pO2 ABG O2 Saturation ABG Base Excess -2.2 L ABG Hemoglobin 13.4 L Oxyhemoglobin 94.8 L Sodium 136 L Potassium Carbon Dioxide 20 L BUN 7 L POC Glucose Alkaline Phosphatase 150 H Total Creatine Kinase Salicylates Acetaminophen Assessment and Plan 1. Possible Status Epilepticus 2. EEG in Hospital . 3. Once stable MRI Brain , 4. If there is evidence of Fever consider LP . 5. Agree with Beverley for now . 6. Start Weaning Down . 7. Minimize Sedation . Follow up Dr. Hsu
--- NOTE | 2021-04-08 10:28 | Progress Note ---
Assessment and Plan Assessment and plan: This is a 20-year-old AA male with a known history of seizure admitted for witnessed seizure activities and acute respiratory failure requiring ventilatory support. Hospital Course to Date: 04/08/21- Patient is intubated and sedated. Was initially only on propofol and fentanyl gtt, RASS 0 to -1, following commands and appropriate. Attempted a SAT and SBT trial, patient appeared to have had possible seizure episodes witnessed by patient's sister who was at the bedside visiting at the time. Per patient's sister, patient was recently admitted and intubated in [place] for the same issue, records requested from [place]. Stat EEG completed, pending result. Versed gtt and IV Keppra added. Neurology on consult. Assessment and Plan #Status Epilepticus - Remains intubated and sedated - New witness seizure like activity today - Continue propofol, fentanyl - Versed gtt added, RASS goal -3 to -4 - IV Keppra started - Continue Seizure precaution #Tachycardia - ST on the monitor - Normotensive - Will continue to monitor for now - Maintain adequate perfusion - Continue rehydration with cont. IVF - Continue blood pressure monitor per protocol - Maintain MAP above 65 #Acute Respiratory Failure - Intubated in the ED on 04/07 for airway protection - Vent Setting: CMV-30%,6,20,400 - AM ABG noted - CCM consulted, appreciate recommendations - VAP bundle addressed - Aspiration precaution HOB above 30 - Daily SBT and SAT trials as tolerated per CCM - Daily ABG and CXR - Continue SPO2 monitoring for SPO2 goal above 92% #GI:NPO - Keep patient NPO for now - Continue PPI- Pepcid - Continuous IVF added #Hyponatremia #Hypokalemia- improved - Prabably due to dehyradtion - Patient presented with low K, K 3.6 this am - NA 136 this am - Cont. IVF added - Strict intake and output - Avoid nephrotoxic medications; Renally dose medications - Bowie in place, low urine output in last 24hrs 213ml - Continue IVF for now - Monitor and replace electrolytes as needed #VTE Prophylaxis - AC-Lovenox added - SCDs to bilateral lower extremities while in bed #Endo: Glycemic Control - BG check Q6hrs - No SSI at this time - Avoid Hypoglycemia The high probability of a clinically significant, sudden or life threatening deterioration of the [Neuro, Respiratory] system(s) required my full and direct attention, intervention and personal management. The aggregate critical care time was [60] minutes. This time is in addition to time spent performing reported procedures but includes the following: [x] Data Review and interpretation [x] Patient assessment and monitoring of vital signs [x] Documentation [x] Medication orders and management Disposition Plan: ICU Total Time Spent with Patient (Minutes): 60 History Interval history: Patient seen and examined at the bedside. Intubated and Sedated, pupils are brisk and reactive, following commands Hospitalist Physical - Constitutional Vitals: Temp Pulse Resp BP Pulse Ox 100.0 F H 103 H 20 111/69 99 04/08/21 03:18 04/08/21 09:00 04/08/21 09:00 04/08/21 09:00 04/08/21 09:00 General appearance: Present: no acute distress, mild distress, other (Intubated and sedated) - EENT Eyes: Present: PERRL ENT: hearing intact - Neck Neck: Present: normal ROM - Respiratory Respiratory effort: normal Respiratory: bilateral: diminished - Cardiovascular Rhythm: regular Heart Sounds: Present: S1 & S2 - Extremities Extremities: no ischemia, pulses intact, pulses symmetrical Peripheral Pulses: within normal limits - Abdominal General gastrointestinal: soft, non-tender, normal bowel sounds - Integumentary Integumentary: Present: clear, warm, dry - Psychiatric Psychiatric: cooperative - Neurologic Neurologic: moves all extremities - Allied Health Allied health notes reviewed: nursing Results - Labs CBC & Chem 7: 04/08/21 04:19 04/08/21 04:19 Labs: Laboratory Last Values WBC 6.4 K/mm3 (4.5-11.0) 04/08/21 04:19 RBC 4.87 M/mm3 (3.65-5.03) 04/08/21 04:19 Hgb 12.8 gm/dl (11.8-15.2) 04/08/21 04:19 Hct 40.4 % (35.5-45.6) 04/08/21 04:19 MCV 83 fl (84-94) L 04/08/21 04:19 MCH 26 pg (28-32) L 04/08/21 04:19 MCHC 32 % (32-34) 04/08/21 04:19 RDW 14.8 % (13.2-15.2) 04/08/21 04:19 Plt Count 173 K/mm3 (140-440) 04/08/21 04:19 Lymph % (Auto) 14.7 % (13.4-35.0) 04/08/21 04:19 [place] % (Auto) 13.1 % (0.0-7.3) H 04/08/21 04:19 Eos % (Auto) 1.8 % (0.0-4.3) 04/08/21 04:19 Baso % (Auto) 0.4 % (0.0-1.8) 04/08/21 04:19 Lymph # (Auto) 0.9 K/mm3 (1.2-5.4) L 04/08/21 04:19 [place] # (Auto) 0.8 K/mm3 (0.0-0.8) 04/08/21 04:19 Eos # (Auto) 0.1 K/mm3 (0.0-0.4) 04/08/21 04:19 Baso # (Auto) 0.0 K/mm3 (0.0-0.1) 04/08/21 04:19 Seg Neutrophils % 70.0 % (40.0-70.0) 04/08/21 04:19 Seg Neutrophils # 4.5 K/mm3 (1.8-7.7) 04/08/21 04:19 ABG pH 7.382 pH Units (7.350-7.450) 04/08/21 04:30 ABG pCO2 39.0 mm Hg 04/08/21 04:30 ABG pO2 81.5 mm Hg (80.0-90.0) 04/08/21 04:30 ABG HCO3 22.6 mmol/L (20.0-26.0) 04/08/21 04:30 ABG O2 Saturation 96.5 % (95.0-99.0) 04/08/21 04:30 ABG O2 Content 18.0 (0.0-44) 04/08/21 04:30 ABG Base Excess -2.2 mmol/L (-2.0-3.0) L 04/08/21 04:30 ABG Hemoglobin 13.4 gm/dl (14.0-18.0) L 04/08/21 04:30 ABG Carboxyhemoglobin 1.4 % (0.0-5.0) 04/08/21 04:30 ABG Methemoglobin 0.4 % (0.0-1.5) 04/08/21 04:30 Oxyhemoglobin 94.8 % (95.0-99.0) L 04/08/21 04:30 FiO2 30 % 04/08/21 04:30 Sodium 136 mmol/L (137-145) L 04/08/21 04:19 Potassium 3.6 mmol/L (3.6-5.0) 04/08/21 04:19 Chloride 103.3 mmol/L (98-107) 04/08/21 04:19 Carbon Dioxide 20 mmol/L (22-30) L 04/08/21 04:19 Anion Gap 16 mmol/L 04/08/21 04:19 BUN 7 mg/dL (9-20) L 04/08/21 04:19 Creatinine 1.0 mg/dL (0.8-1.3) 04/08/21 04:19 Estimated GFR > 60 ml/min 04/08/21 04:19 BUN/Creatinine Ratio 7 % 04/08/21 04:19 Glucose 84 mg/dL (75-100) 04/08/21 04:19 POC Glucose 75 mg/dL (70-105) 04/08/21 05:20 Calcium 8.8 mg/dL (8.4-10.2) 04/08/21 04:19 Magnesium 1.70 mg/dL (1.7-2.3) 04/07/21 16:28 Total Bilirubin 0.30 mg/dL (0.1-1.2) 04/08/21 04:19 AST 23 units/L (5-40) 04/08/21 04:19 ALT 14 units/L (7-56) 04/08/21 04:19 Alkaline Phosphatase 150 units/L (35-129) H 04/08/21 04:19 Total Creatine Kinase 484 units/L (55-170) H 04/07/21 16:28 Total Protein 6.7 g/dL (6.3-8.2) 04/08/21 04:19 Albumin 3.9 g/dL (3.9-5) 04/08/21 04:19 Albumin/Globulin Ratio 1.4 % 04/08/21 04:19 TSH 1.370 mlU/mL (0.270-4.200) 04/07/21 16:28 Urine Color Yellow (Yellow) 04/07/21 Unknown Urine Turbidity Cloudy (Clear) 04/07/21 Unknown Urine pH 6.0 (5.0-7.0) 04/07/21 Unknown Ur Specific [place] 1.021 (1.003-1.030) 04/07/21 Unknown Urine Protein 100 mg/dl mg/dL (Negative) 04/07/21 Unknown Urine Glucose (UA) Neg mg/dL (Negative) 04/07/21 Unknown Urine Ketones Neg mg/dL (Negative) 04/07/21 Unknown Urine Blood Neg (Negative) 04/07/21 Unknown Urine Nitrite Neg (Negative) 04/07/21 Unknown Urine Bilirubin Neg (Negative) 04/07/21 Unknown Urine Urobilinogen < 2.0 mg/dL (<2.0) 04/07/21 Unknown Ur Leukocyte Esterase Neg (Negative) 04/07/21 Unknown Urine WBC (Auto) 2.0 /HPF (0.0-6.0) 04/07/21 Unknown Urine RBC (Auto) 5.0 /HPF (0.0-6.0) 04/07/21 Unknown U Epithel Cells (Auto) 1.0 /HPF (0-13.0) 04/07/21 Unknown Urine Mucus 2+ /HPF 04/07/21 Unknown Salicylates < 0.3 mg/dL (2.8-20.0) L 04/07/21 16:28 Urine Opiates Screen Negative 04/07/21 Unknown Urine Methadone Screen Negative 04/07/21 Unknown Acetaminophen 5.0 ug/mL (10.0-30.0) L 04/07/21 16:28 Ur Barbiturates Screen Positive 04/07/21 Unknown Ur Phencyclidine Scrn Negative 04/07/21 Unknown Ur Amphetamines Screen Negative 04/07/21 Unknown U Benzodiazepines Scrn Negative 04/07/21 Unknown Urine Cocaine Screen Negative 04/07/21 Unknown U Marijuana (THC) Screen Positive 04/07/21 Unknown Drugs of Abuse Note Disclamer 04/07/21 Unknown Plasma/Serum Alcohol < 0.01 % (0-0.07) 04/07/21 16:28 [place]/IV: Voiding Method Indwelling Catheter Active Medications - Current Medications Current Medications: Generic Name Dose Route Start Last Admin Trade Name Freq PRN Reason Stop Dose Admin Acetaminophen 650 mg 04/07/21 18:44 Acetaminophen [address] Q6H PRN Pain MILD(1-3)/Fever >100.5/FRANCIS Albuterol 2.5 mg 04/07/21 18:44 Albuterol 2.5 Mg/3 Ml Nebu IH Q3HRT PRN Shortness Of Breath Dextrose 50 ml 04/08/21 07:36 Dextrose 50% In Water (25gm) 50 Ml Syringe IV Q30MIN PRN Hypoglycemia Protocol Famotidine 20 mg 04/07/21 22:00 04/08/21 09:43 Famotidine 20 Mg/2 Ml Inj IV 20 mg BID JUSTIN Administration Fentanyl 50 mcg 04/07/21 16:29 04/07/21 18:43 Fentanyl 100 Mcg/2 Ml Inj IV 50 mcg Q10MIN PRN Administration ANALGESIA Haloperidol Lactate 5 mg 04/07/21 16:07 04/07/21 16:10 Haloperidol Lactate 5 Mg/1 Ml Inj IM 5 mg Q6HR PRN Administration Agitation Hydromorphone HCl 0.5 mg 04/07/21 18:44 Hydromorphone 1 Mg/1 Ml Inj IV Q23H PRN Pain , Severe (7-10) Hydrophilic Ointment 1 applic 04/07/21 16:29 Lip Therapy Vaseline TP Q2HR PRN Dry Lips Propofol 1,000 mg in 100 mls @ 13.064 mls/hr 04/07/21 17:00 04/08/21 05:52 Diprivan 10 Mg/Ml IV 40 mcg/kg/min TITR JUSTIN 17.418 mls/hr Administration Protocol 30 MCG/KG/MIN Fentanyl Citrate 2,000 mcg in 100 mls @ 3.629 mls/hr 04/07/21 17:00 04/07/21 18:35 Fentanyl Drip Premix IV 1 mcg/kg/hr TITR JUSTIN 3.629 mls/hr Administration Protocol 1 MCG/KG/HR Levetiracetam 1,500 mg/ 115 mls @ 400 mls/hr 04/08/21 11:00 Dextrose IV Q12HR JUSTIN Lorazepam 2 mg 04/07/21 16:07 04/07/21 21:03 Lorazepam 2 Mg/Ml Vial IM 2 mg Q4HR PRN Administration Agitation Multi-Ingred Cream/Lotion/Oil/Oint 1 applic 04/07/21 16:29 Mineral Oil/Petrolatum, White Ophth Oint 3.5 Gm OU Q4HR PRN Dry Eye(s) Oxycodone/Acetaminophen 1 tab 04/07/21 18:44 Oxycodone /Acetaminophen 5-325mg Tab PO Q16H PRN Pain, Moderate (4-6) Senna/Docusate Sodium 1 tab 04/07/21 22:00 04/08/21 09:44 Sennosides/Docusate Sodium 8.6/50 Mg Tab FEEDTUBE Not Given BID JUSTIN Sodium Chloride 10 ml 04/07/21 22:00 04/08/21 09:44 Sodium Chloride 0.9% 10 Ml Flush Syringe IV 10 ml BID JUSTIN Administration Sodium Chloride 10 ml 04/07/21 18:44 Sodium Chloride 0.9% 10 Ml Flush Syringe IV PRN PRN LINE FLUSH
[2021-04-08] MEDS: levETIRAcetam 1,500 MG in DEXTROSE 5% IN WATER 100 ML IV SCH ×2 (11:16→21:20)
--- NOTE | 2021-04-08 11:49 | Consultation ---
History of Present Illness Consult date: 04/08/21 Requesting physician: ABHISHEK JIMENEZ Reason for consult: other (Acute Hypoxemic Respiratory Failure on MVS; Seizures) History of present illness: PULMONARY/CCM CONSULT NOTE (Full dictation # [id number]) Please see dictated notes for full details Past History Past Medical History: seizures Past Surgical History: No surgical history, Other (Reviewed) Social history: single. denies: smoking, alcohol abuse Family history: hypertension Medications and Allergies Allergies Allergy/AdvReac Type Severity Reaction Status Date / Time No Known Allergies Allergy Verified 04/07/21 16:02 Home Medications Medication Instructions Recorded Confirmed Last Taken Type Carbamazepine ER 2 - 3 cap PO QAM&QHS 04/08/21 04/08/21 Unknown History Phenytoin Sodium Extended 1 cap PO TID 04/08/21 04/08/21 Unknown History Zonisamide 3 cap PO Q24HR 04/08/21 04/08/21 Unknown History Active Meds: Active Medications Acetaminophen (Acetaminophen 650 Mg Rect Supp) 650 mg [place] Q6H PRN PRN Reason: Pain MILD(1-3)/Fever >100.5/FRANCIS Albuterol (Albuterol 2.5 Mg/3 Ml Nebu) 2.5 mg IH Q3HRT PRN PRN Reason: Shortness Of Breath Dextrose (Dextrose 50% In Water (25gm) 50 Ml Syringe) 50 ml IV Q30MIN PRN; Protocol PRN Reason: Hypoglycemia Famotidine (Famotidine 20 Mg/2 Ml Inj) 20 mg IV BID JUSTIN Last Admin: 04/08/21 09:43 Dose: 20 mg Documented by: Fentanyl (Fentanyl 100 Mcg/2 Ml Inj) 50 mcg IV Q10MIN PRN PRN Reason: ANALGESIA Last Admin: 04/07/21 18:43 Dose: 50 mcg Documented by: Haloperidol Lactate (Haloperidol Lactate 5 Mg/1 Ml Inj) 5 mg IV Q6HR PRN PRN Reason: Agitation Hydromorphone HCl (Hydromorphone 1 Mg/1 Ml Inj) 0.5 mg IV Q23H PRN PRN Reason: Pain , Severe (7-10) Hydrophilic Ointment (Lip Therapy Vaseline) 1 applic TP Q2HR PRN PRN Reason: Dry Lips Propofol (Diprivan 10 Mg/Ml) 1,000 mg in 100 mls @ 13.064 mls/hr IV TITR JUSTIN; Protocol Last Titration: 12/08/21 11:35 Dose: 0 mcg/kg/min, 0 mls/hr Documented by: Fentanyl Citrate (Fentanyl Drip Premix) 2,000 mcg in 100 mls @ 3.629 mls/hr IV TITR JUSTIN; Protocol Last Admin: 04/07/21 18:35 Dose: 1 mcg/kg/hr, 3.629 mls/hr Documented by: Levetiracetam 1,500 mg/ (Dextrose) 115 mls @ 400 mls/hr IV Q12HR [facility] Last Admin: 04/08/21 11:16 Dose: 400 mls/hr Documented by: Lorazepam (Lorazepam 2 Mg/Ml Vial) 2 mg IV Q4HR PRN PRN Reason: Agitation Multi-Ingred Cream/Lotion/Oil/Oint (Mineral Oil/Petrolatum, White Ophth Oint 3.5 Gm) 1 applic OU Q4HR PRN PRN Reason: Dry Eye(s) Oxycodone/Acetaminophen (Oxycodone /Acetaminophen 5-325mg Tab) 1 tab PO Q16H PRN PRN Reason: Pain, Moderate (4-6) Senna/Docusate Sodium (Sennosides/Docusate Sodium 8.6/50 Mg Tab) 1 tab FEEDTUBE BID [facility] Last Admin: 04/08/21 09:44 Dose: Not Given Documented by: Sodium Chloride (Sodium Chloride 0.9% 10 Ml Flush Syringe) 10 ml IV BID [facility] Last Admin: 04/08/21 09:44 Dose: 10 ml Documented by: Sodium Chloride (Sodium Chloride 0.9% 10 Ml Flush Syringe) 10 ml IV PRN PRN PRN Reason: LINE FLUSH Physical Examination Vital signs: Vital Signs Pulse Ox 98 04/07/21 16:00 Results - Laboratory Findings CBC and BMP: 04/08/21 04:19 04/08/21 04:19 ABG ABG pH 7.382 pH Units (7.350-7.450) 04/08/21 04:30 ABG pCO2 39.0 mm Hg 04/08/21 04:30 ABG pO2 81.5 mm Hg (80.0-90.0) 04/08/21 04:30 ABG O2 Saturation 96.5 % (95.0-99.0) 04/08/21 04:30 Abnormal lab findings: Abnormal Labs 04/07/21 04/07/21 04/07/21 15:51 16:28 16:28 RBC 5.06 H MCV 83 L MCH 26 L Lymph % (Auto) 6.0 L [place] % (Auto) 7.4 H Lymph # (Auto) 0.4 L Seg Neutrophils % 84.7 H ABG pO2 ABG O2 Saturation ABG Base Excess ABG Hemoglobin Oxyhemoglobin Sodium Potassium 3.4 L Carbon Dioxide 19 L BUN 8 L POC Glucose 106 H Alkaline Phosphatase 162 H Total Creatine Kinase 484 H Salicylates Acetaminophen 04/07/21 04/07/21 04/07/21 16:28 16:28 18:00 RBC MCV MCH Lymph % (Auto) [place] % (Auto) Lymph # (Auto) Seg Neutrophils % ABG pO2 390.1 H ABG O2 Saturation 99.6 H ABG Base Excess -2.2 L ABG Hemoglobin 13.1 L Oxyhemoglobin Sodium Potassium Carbon Dioxide BUN POC Glucose Alkaline Phosphatase Total Creatine Kinase Salicylates < 0.3 L Acetaminophen 5.0 L 04/08/21 04/08/21 04/08/21 04:19 04:19 04:30 RBC MCV 83 L MCH 26 L Lymph % (Auto) [place] % (Auto) 13.1 H Lymph # (Auto) 0.9 L Seg Neutrophils % ABG pO2 ABG O2 Saturation ABG Base Excess -2.2 L ABG Hemoglobin 13.4 L Oxyhemoglobin 94.8 L Sodium 136 L Potassium Carbon Dioxide 20 L BUN 7 L POC Glucose Alkaline Phosphatase 150 H Total Creatine Kinase Salicylates Acetaminophen
[2021-04-08] MEDS ORDERED: HALOPERIDOL LACTATE 5 MG/1 ML INJ IV PRN (12:00)
[2021-04-08] MEDS ORDERED: LORazepam 2 MG/ML VIAL IV PRN (12:00)
[2021-04-08] MEDS ORDERED: propofoL 200 MG/20 ML VIAL IV ONE ×2 (12:21→12:25)
[2021-04-08] MEDS ORDERED: MIDAZOLAM 2 MG/2 ML INJ IV PRN (13:00)
[2021-04-08] MEDS ORDERED: MIDAZOLAM 100 MG in SODIUM CHLORIDE 0.9% 80 ML IV SCH (13:00)
[2021-04-08] MEDS: fentaNYL DRIP Premix 2,000 MCG/100 ML BAG IV SCH (13:14)
[2021-04-08] MEDS ORDERED: SODIUM CHLORIDE 0.9% 1000 ML 1,000 ML IV ONE (13:30)
--- NOTE | 2021-04-08 13:32 | Event Note ---
Date: 04/08/21 The patient was in the ICU on the ventilator. His sister is at bedside. She says he was admitted for seizures. She says she [place] the patient from another state to help him. She denies any past psych history or any drug use that she knows of outside of "weed." Staff reports the patient has been agitated and kicking. Agree with Jhonatan mathur
[2021-04-08] MEDS ORDERED: D5W/0.45% NACL 1,000 ML IV SCH (17:00)
[2021-04-08] MEDS: DEXTROSE 50% IN WATER (25GM) 50 ML SYRINGE IV PRN ×2 (17:34→23:48)
[2021-04-08] MEDS: ENOXAPARIN 40 MG/0.4 ML INJ SUB-Q SCH (21:09)
--- NOTE | 2021-04-08 22:35 | Consultation ---
DATE OF CONSULTATION: 04/08/2021 PULMONARY CRITICAL CARE CONSULTATION NOTE CONSULTING PHYSICIAN: Dr. Rony Villagran. REASON FOR CONSULTATION: Acute hypoxemic respiratory failure, on mechanical ventilatory support, seizure disorder. CHIEF COMPLAINT AND HISTORY OF PRESENT ILLNESS: The patient is a 20-year-old male with past medical history, according to the sister who is now into the room, significant for a history of seizure disorder. He has had it since he was a child according to her and was recently hospitalized in [place], I believe, at which time she thinks he was also intubated. He was brought into the ER by EMS secondary to convulsions and erratic behavior. It was really nonspecific. He did have a history of seizures; however, in the field he was moving all 4 extremities and protecting his airway. In the ER, he had episodes of multiple writhing and convulsive events. He did not respond to verbal techniques. He was almost falling off to the floor. He did not respond to chemical restraints. He was ultimately intubated after he failed to respond to even Geodon, Ativan, Haldol, Benadryl. Post-intubation, I was informed of the patient's situation and asked to assist with management. When I stopped by to see him, he was resting in bed, about to get an EEG done. He was responding appropriately at this point in time, although he will have intermittent episodes of somnolence. He denied any chest pain. He denied a history of tobacco use or abuse. He has had no nausea, vomiting or overt aspiration. The above is as much of the history of presentation as I have. PAST MEDICAL HISTORY: Seizure disorder. PAST SURGICAL HISTORY: Unknown. MEDICATIONS: He was on at the time I stopped by to see him, according to the medication administration record included the following: Tylenol 650 mg per rectum q. 6 hours p.r.n. mild pain or fevers, albuterol 2.5 mg nebulized q. 3 hours, Pepcid 20 mg IV b.i.d., fentanyl drip had been going earlier, I believe, at 1 mcg/kg per hour. He had also been on propofol drip earlier. Haldol 5 mg IV q. 6 hours p.r.n. agitation. Dilaudid 0.5 mg IV q. 23 hours p.r.n. severe pain. Keppra 1.5 grams IV q. 12 hours. Ativan 2 mg IV q. 4 hours p.r.n. agitation. Senna docusate 1 tablet p.o. b.i.d. ALLERGIES: No known drug allergies. DIET: Well-built gentleman. Family denies acute weight loss or gain in the preceding few weeks to months. FAMILY AND SOCIAL HISTORY: Lives in the community. Denies alcohol, tobacco or illicit drug use or abuse. There is a family history of hypertension. REVIEW OF SYSTEMS: Difficult to obtain secondary to the patient's medical and mental condition since he has been here. No gross hematochezia or melena. No gross hematuria. He denies dysuria. No hematemesis. No bloody tracheal secretions. He has had the witnessed convulsive/seizure type behavior. Complete 13-system review of system was obtained. Pertinent positives and/or negatives as in body of history above, otherwise noncontributory. PHYSICAL EXAMINATION: VITAL SIGNS: At presentation, he had a low-grade fever of 99.2 degrees Fahrenheit rectally with a pulse of 132, respiratory rate of 22, blood pressure 117/83, O2 sats were 98%, inspired oxygen concentration at that time was not recorded. When I stopped by to see him, O2 sats were 99% that was on the assist control mode of ventilation, tidal volume was set at 450, rate of 20, PEEP of 6 and 30% FiO2 at that time. GENERAL: He is a young male. Normocephalic, atraumatic, intubated on the mechanical ventilator without significant patient ventilator dyssynchrony. HEAD, EYES, EARS, NOSE AND THROAT: Anicteric. No conjunctival erythema. Oropharynx was moist. No gross jugular venous distention. ET tube was taped at the lips around 24 cm. Grossly, there were no palpable lymph nodes in the supraclavicular or submandibular lymph node chains. No thyromegaly. LUNGS: Auscultation of both lung brooks was unremarkable. He had good bilateral air movement without any wheezing. HEART: Sounds 1 and 2 are heard. There were regular rate and rhythm at the time of my evaluation without overt rubs or murmurs. ABDOMEN: Soft, flat, bowel sounds are positive, nontender, no palpable hepatosplenomegaly. EXTREMITIES: Without overt digital clubbing or cyanosis. No pedal edema. Pedal pulses are 2+ bilaterally. NEUROLOGIC: Pupils are equal, round, about 4 mm, reactive to light. Extraocular muscle movements are intact. He moves all 4 extremities spontaneously. SKIN: Normal turgor without overt cellulitis or rash in the areas I examined. Please see the wound care nurses' notes for full description of his skin. PSYCHIATRIC: Mood and affect could not be assessed. He was recovering from sedation and had a poor judgment and insight. LABORATORY DATA: From my review are as follows: Admission white cell count 7200, hemoglobin 13.3, hematocrit 42.2, platelet count was 183. No manual differential. Venous blood gas showed a pH of 7.38 with a pCO2 of 39, pO2 of 390 on 100% FiO2 at presentation. Today, pH is 7.38, pCO2 is 39, pO2 is 82 on the above-mentioned vent settings. Serum sodium on admission was 139, potassium 3.4, chloride was 103, bicarbonate was 19, BUN was 8, creatinine was 0.9, glucose was 89. Mag, phos within normal limits. Liver function test within normal limits. CPK was elevated at 484. TSH is within normal limits. Urinalysis was negative for nitrites and leukocyte esterase and essentially a bland sample. Aspirin, Tylenol, alcohol levels were nondetectable. Urine drug screen was presumptive positive for marijuana and barbiturates. Tracheal cultures pending. Chest x-ray has been reviewed. Endotracheal tube tip is in good position. No acute process otherwise. He had a CT angio of the head at presentation. No significant abnormality. He had a CT angio of the neck, no significant stenosis. He also had a CT of the head, no acute intracranial abnormality. ASSESSMENT: 1. Acute respiratory failure, on mechanical ventilatory support. 2. History of seizures. 3. Acute seizures versus pseudoseizures. 4. Oropharyngeal dysphagia. 5. Mild metabolic acidosis. 6. Elevated serum creatine kinase. PLAN: He is looking much better now. We will continue his antiepileptic drugs. He has been seen by the tele neurologist. I will defer to Neurology for further neurological evaluation to the neurology team. EEG will be followed. I have put him on a spontaneous breathing trial. He looks like he will pull-through. His sedation has been held. If he passes a spontaneous breathing trial, the plan will be to extubate him. For now, he is appropriately on GI prophylaxis. I will put him on DVT prophylaxis with Lovenox. Flu and pneumonia vaccination will be addressed per protocol. Fall precautions are also being done right now. Ventilator-associated pneumonia bundle has been introduced. Bronchodilators will be on a p.r.n. basis. Pulmonary hygiene will be per the respiratory therapist. Serum glucose levels will be adjusted to 140-180 mg/dL while critically ill. Thank you very much for the consult. We will follow along and make further recommendations as picture progresses/becomes clearer. He is critically ill on life-sustaining interventions including mechanical ventilatory support at high risk of from cardiopulmonary as well as neurologic system decompensation. At this time, I spent about 35-40 minutes of critical care time without overlap and excluding any procedural time that may be necessary. TID: [id number] RECEIPT: [id number] BENI/MAGGI
[2021-04-09] MEDS ORDERED: D10W 500 ML IV SOLN IV SCH (01:00)
[2021-04-09] MEDS: DEXTROSE 10% IN WATER 1,000 ML IV SCH ×2 (02:23→22:29)
--- NOTE | 2021-04-09 03:19 | XRay Report ---
ABDOMEN 1 VIEW INDICATION / CLINICAL INFORMATION: og tube placement. COMPARISON: Yesterday, 04/08/2021 FINDINGS: Orogastric tube tip and side port projects in the stomach. Signer Name: Geremias Cruz MD Signed: 04/09/2021 3:15 AM Workstation Name: [id number]
--- NOTE | 2021-04-09 03:19 | XRay Report ---
XR chest 1V ap INDICATION / CLINICAL INFORMATION: follow up respiratory failure. COMPARISON: Radiograph from yesterday. FINDINGS: SUPPORT DEVICES: Unchanged. HEART /PULMONARY VASCULATURE: Unchanged. LUNGS / PLEURA: No significant pulmonary or pleural abnormality. No pneumothorax. IMPRESSION: 1. No significant interval change. No acute findings. Signer Name: Geremias Cruz MD Signed: 04/09/2021 3:15 AM Workstation Name: [id number]
[2021-04-09] MEDS: fentaNYL DRIP Premix 2,000 MCG/100 ML BAG IV SCH (03:34)
[2021-04-09 05:21] LABS: Hematocrit 37.9 % (35.5-45.6); Hemoglobin 11.9 gm/dl (11.8-15.2); Mean Corpuscular HGB Conc 32 % (32-34); Mean Corpuscular Volume 84 fl (84-94); Platelet Count 142 K/mm3 (140-440); Red Blood Count 4.53 M/mm3 (3.65-5.03); Red Cell Distribution Width 14.7 % (13.2-15.2)
[2021-04-09 05:33] LABS: ABG Base Excess -1.8 mmol/L (-2.0-3.0); ABG Methemoglobin 0.5 % (0.0-1.5); ABG Oxygen Saturation 98.8 % (95.0-99.0); ABG PCO2 39.5 mm Hg; ABG PH 7.383 pH Units (7.350-7.450)
[2021-04-09 05:35] LABS: BUN/Creatinine Ratio 7; Blood Urea Nitrogen 6 mg/dL (9-20); Calcium 8.3 mg/dL (8.4-10.2); Hemolysis Index 12
--- NOTE | 2021-04-09 10:23 | Electrocardiograph Report ---
[facility] Test Date: 2021-04-07 Test Time: 16:54:57 Pat Name: ROM HALL Department: Room: A253 1 Gender: M Copy Machine Operator: TV : 2000 Requested By: ABHISHEK JIMENEZ Order Number: [id number] Reading MD: Radha Gould Measurements Intervals [place] Rate: 125 P: 76 AK: 148 QRS: 102 QRSD: 69 T: 18 QT: 308 QTc: 445 Interpretive Statements Sinus tachycardia Rightward axis deviation No previous ECG available for comparison Electronically Signed On 04-09-2021 10:23:03 EST by Radha Gould
[2021-04-09] MEDS: FAMOTIDINE 20 MG/2 ML INJ IV SCH ×2 (11:01→22:20)
[2021-04-09] MEDS: levETIRAcetam 1,500 MG in DEXTROSE 5% IN WATER 100 ML IV SCH ×2 (11:01→22:21)
--- NOTE | 2021-04-09 11:09 | Progress Note ---
Assessment and Plan Assessment and plan: This is a 20-year-old AA male with a known history of seizure admitted for witnessed seizure activities and acute respiratory failure requiring ventilatory support. Hospital Course to Date: 04/08/21- Patient is intubated and sedated. Was initially only on propofol and fentanyl gtt, RASS 0 to -1, following commands and appropriate. Attempted a SAT and SBT trial, patient appeared to have had possible seizure episodes witnessed by patient's sister who was at the bedside visiting at the time. Per patient's sister, patient was recently admitted and intubated in [place] for the same issue, records requested from [place]. Stat EEG completed, pending result. Versed gtt and IV Keppra added. Neurology on consult. 04/09/21- EEG full report/result is still pending. D/w CCM, per fitness technician there was no evidence of seizure. Received patient records from [place], patient was recently D/C from the hospital on 03/25 where he was treated for epileptic & non-epileptic seizures. Patient was discharge on some antiepilectics drugs, sister to bring most current medications lists. Will restart on home meds once available. MRI brain is pending. [facility] recommends transferring patient to another facility for continuous EEG monitoring. Transfer process was initiated, awaiting response. Assessment and Plan #Status Epilepticus - Remains intubated on low dose versed and fent. RASS 0 - New witness seizure like activity again today - MRI brain is pending - Continue Keppra - Continue Seizure precaution - Will restart homes once available - Plan to transsfer patient to another facility for continuous EEG #Tachycardia - ST on the monitor - Normotensive - Will continue to monitor for now - Maintain adequate perfusion - Continue rehydration with cont. IVF - Continue blood pressure monitor per protocol - Maintain MAP above 65 #Acute Respiratory Failure - Intubated in the ED on 04/07 for airway protection - Vent Setting:PS-30%,6,PS-10 - AM ABG noted - CCM consulted, appreciate recommendations - VAP bundle addressed - Aspiration precaution HOB above 30 - Daily SBT and SAT trials as tolerated per CCM - Daily ABG and CXR - Continue SPO2 monitoring for SPO2 goal above 92% #GI:NPO - Keep patient NPO for now - Continue PPI- Pepcid - Continuous IVF #Hyponatremia-imrpoved #Hypokalemia- improved - Prabably due to dehyradtion - Patient presented with low K, K 3.6 this am - Cont. IVF added - Strict intake and output - Avoid nephrotoxic medications; Renally dose medications - Bowie in place, low urine output in last 24hrs 213ml - Continue IVF for now - Monitor and replace electrolytes as needed #VTE Prophylaxis - AC-Lovenox added - SCDs to bilateral lower extremities while in bed #Endo: Hypoglycemia - IVF switched to D10W - Continue BG check Q6hrs - No SSI at this time - Avoid Hypoglycemia The high probability of a clinically significant, sudden or life threatening deterioration of the [Neuro, Endo] system(s) required my full and direct attention, intervention and personal management. The aggregate critical care time was [60] minutes. This time is in addition to time spent performing reported procedures but includes the following: [x] Data Review and interpretation [x] Patient assessment and monitoring of vital signs [x] Documentation [x] Medication orders and management Disposition Plan: ICU Total Time Spent with Patient (Minutes): 60 History Interval history: Patient seen and examined at the bedside. Intubated and was on low dose fentanyl and versed, on PS on the vent and following and communicating needs by writing this am. However, later on today patient had another episodes of seizures like activity. Per RN, patient seems to sense when he is able to get an attack. It is reported that patient looks like he was in complete panic, HR increased in the 140s, then he start to stiffen and shake throughout his body, his eyes rolled in the back of his eyes, however, patient was following simple commands just appear to be in a daze. Patient was then re-sedated, propofol was restarted. Hospitalist Physical - Constitutional Vitals: Temp Pulse Resp BP Pulse Ox 98.3 F 91 H 14 111/75 100 04/09/21 07:26 04/09/21 10:30 04/09/21 10:30 04/09/21 10:30 04/09/21 10:30 General appearance: Present: no acute distress, mild distress, other (Intubated and sedated) Results - Labs CBC & Chem 7: 04/09/21 04:55 04/09/21 04:55 Labs: Laboratory Last Values WBC 7.9 K/mm3 (4.5-11.0) 04/09/21 04:55 RBC 4.53 M/mm3 (3.65-5.03) 04/09/21 04:55 Hgb 11.9 gm/dl (11.8-15.2) 04/09/21 04:55 Hct 37.9 % (35.5-45.6) 04/09/21 04:55 MCV 84 fl (84-94) 04/09/21 04:55 MCH 26 pg (28-32) L 04/09/21 04:55 MCHC 32 % (32-34) 04/09/21 04:55 RDW 14.7 % (13.2-15.2) 04/09/21 04:55 Plt Count 142 K/mm3 (140-440) 04/09/21 04:55 Lymph % (Auto) 14.7 % (13.4-35.0) 04/08/21 04:19 [place] % (Auto) 13.1 % (0.0-7.3) H 04/08/21 04:19 Eos % (Auto) 1.8 % (0.0-4.3) 04/08/21 04:19 Baso % (Auto) 0.4 % (0.0-1.8) 04/08/21 04:19 Lymph # (Auto) 0.9 K/mm3 (1.2-5.4) L 04/08/21 04:19 [place] # (Auto) 0.8 K/mm3 (0.0-0.8) 04/08/21 04:19 Eos # (Auto) 0.1 K/mm3 (0.0-0.4) 04/08/21 04:19 Baso # (Auto) 0.0 K/mm3 (0.0-0.1) 04/08/21 04:19 Seg Neutrophils % 70.0 % (40.0-70.0) 04/08/21 04:19 Seg Neutrophils # 4.5 K/mm3 (1.8-7.7) 04/08/21 04:19 ABG pH 7.383 pH Units (7.350-7.450) 04/09/21 04:30 ABG pCO2 39.5 mm Hg 04/09/21 04:30 ABG pO2 145.0 mm Hg (80.0-90.0) H 04/09/21 04:30 ABG HCO3 23.0 mmol/L (20.0-26.0) 04/09/21 04:30 ABG O2 Saturation 98.8 % (95.0-99.0) 04/09/21 04:30 ABG O2 Content 16.5 (0.0-44) 04/09/21 04:30 ABG Base Excess -1.8 mmol/L (-2.0-3.0) 04/09/21 04:30 ABG Hemoglobin 11.9 gm/dl (14.0-18.0) L 04/09/21 04:30 ABG Carboxyhemoglobin 1.4 % (0.0-5.0) 04/09/21 04:30 ABG Methemoglobin 0.5 % (0.0-1.5) 04/09/21 04:30 Oxyhemoglobin 96.9 % (95.0-99.0) 04/09/21 04:30 FiO2 30 % 04/09/21 04:30 Sodium 138 mmol/L (137-145) 04/09/21 04:55 Potassium 3.6 mmol/L (3.6-5.0) 04/09/21 04:55 Chloride 102.5 mmol/L (98-107) 04/09/21 04:55 Carbon Dioxide 22 mmol/L (22-30) 04/09/21 04:55 Anion Gap 17 mmol/L 04/09/21 04:55 BUN 6 mg/dL (9-20) L 04/09/21 04:55 Creatinine 0.9 mg/dL (0.8-1.3) 04/09/21 04:55 Estimated GFR > 60 ml/min 04/09/21 04:55 BUN/Creatinine Ratio 7 % 04/09/21 04:55 Glucose 101 mg/dL (75-100) H 04/09/21 04:55 POC Glucose 87 mg/dL (70-105) 04/09/21 06:24 Calcium 8.3 mg/dL (8.4-10.2) L 04/09/21 04:55 Phosphorus 2.80 mg/dL (2.5-4.5) 04/09/21 04:55 Magnesium 1.90 mg/dL (1.7-2.3) 04/09/21 04:55 Total Bilirubin 0.30 mg/dL (0.1-1.2) 04/08/21 04:19 AST 23 units/L (5-40) 04/08/21 04:19 ALT 14 units/L (7-56) 04/08/21 04:19 Alkaline Phosphatase 150 units/L (35-129) H 04/08/21 04:19 Total Creatine Kinase 484 units/L (55-170) H 04/07/21 16:28 Total Protein 6.7 g/dL (6.3-8.2) 04/08/21 04:19 Albumin 3.9 g/dL (3.9-5) 04/08/21 04:19 Albumin/Globulin Ratio 1.4 % 04/08/21 04:19 TSH 1.370 mlU/mL (0.270-4.200) 04/07/21 16:28 Urine Color Yellow (Yellow) 04/07/21 Unknown Urine Turbidity Cloudy (Clear) 04/07/21 Unknown Urine pH 6.0 (5.0-7.0) 04/07/21 Unknown Ur Specific [place] 1.021 (1.003-1.030) 04/07/21 Unknown Urine Protein 100 mg/dl mg/dL (Negative) 04/07/21 Unknown Urine Glucose (UA) Neg mg/dL (Negative) 04/07/21 Unknown Urine Ketones Neg mg/dL (Negative) 04/07/21 Unknown Urine Blood Neg (Negative) 04/07/21 Unknown Urine Nitrite Neg (Negative) 04/07/21 Unknown Urine Bilirubin Neg (Negative) 04/07/21 Unknown Urine Urobilinogen < 2.0 mg/dL (<2.0) 04/07/21 Unknown Ur Leukocyte Esterase Neg (Negative) 04/07/21 Unknown Urine WBC (Auto) 2.0 /HPF (0.0-6.0) 04/07/21 Unknown Urine RBC (Auto) 5.0 /HPF (0.0-6.0) 04/07/21 Unknown U Epithel Cells (Auto) 1.0 /HPF (0-13.0) 04/07/21 Unknown Urine Mucus 2+ /HPF 04/07/21 Unknown Salicylates < 0.3 mg/dL (2.8-20.0) L 04/07/21 16:28 Urine Opiates Screen Negative 04/07/21 Unknown Urine Methadone Screen Negative 04/07/21 Unknown Acetaminophen 5.0 ug/mL (10.0-30.0) L 04/07/21 16:28 Ur Barbiturates Screen Positive 04/07/21 Unknown Ur Phencyclidine Scrn Negative 04/07/21 Unknown Ur Amphetamines Screen Negative 04/07/21 Unknown U Benzodiazepines Scrn Negative 04/07/21 Unknown Urine Cocaine Screen Negative 04/07/21 Unknown U Marijuana (THC) Screen Positive 04/07/21 Unknown Drugs of Abuse Note Disclamer 04/07/21 Unknown Plasma/Serum Alcohol < 0.01 % (0-0.07) 04/07/21 16:28 Microbiology: Microbiology 04/07/21 17:30 Tracheal Aspirate Sputum Culture - Preliminary Bowie/IV: Voiding Method Urinal Active Medications - Current Medications Current Medications: Generic Name Dose Route Start Last Admin Trade Name Freq PRN Reason Stop Dose Admin Acetaminophen 650 mg 04/07/21 18:44 Acetaminophen 650 Mg Rect Supp MO Q6H PRN Pain MILD(1-3)/Fever >100.5/FRANCIS Albuterol 2.5 mg 04/07/21 18:44 Albuterol 2.5 Mg/3 Ml Nebu IH Q3HRT PRN Shortness Of Breath Dextrose 50 ml 04/08/21 07:36 04/08/21 23:48 Dextrose 50% In Water (25gm) 50 Ml Syringe IV 20 ml Q30MIN PRN Administration Hypoglycemia Protocol Enoxaparin Sodium 40 mg 04/08/21 22:00 04/08/21 21:09 Enoxaparin 40 Mg/0.4 Ml Inj SUB-Q 40 mg QDAY@2200 JUSTIN Administration Protocol Famotidine 20 mg 04/07/21 22:00 04/09/21 11:01 Famotidine 20 Mg/2 Ml Inj IV 20 mg BID JUSTIN Administration Fentanyl 50 mcg 04/07/21 16:29 04/07/21 18:43 Fentanyl 100 Mcg/2 Ml Inj IV 50 mcg Q10MIN PRN Administration ANALGESIA Haloperidol Lactate 5 mg 04/08/21 12:00 Haloperidol Lactate 5 Mg/1 Ml Inj IV Q6HR PRN Agitation Hydromorphone HCl 0.5 mg 04/07/21 18:44 Hydromorphone 1 Mg/1 Ml Inj IV Q23H PRN Pain , Severe (7-10) Hydrophilic Ointment 1 applic 04/07/21 16:29 Lip Therapy Vaseline TP Q2HR PRN Dry Lips Propofol 1,000 mg in 100 mls @ 13.064 mls/hr 04/07/21 17:00 04/09/21 02:59 Diprivan 10 Mg/Ml IV 25 mcg/kg/min TITR JUSTIN 10.886 mls/hr Titration Protocol 30 MCG/KG/MIN Fentanyl Citrate 2,000 mcg in 100 mls @ 3.629 mls/hr 04/07/21 17:00 04/09/21 03:34 Fentanyl Drip Premix IV 1 mcg/kg/hr TITR JUSTIN 3.629 mls/hr Administration Protocol 1 MCG/KG/HR Levetiracetam 1,500 mg/ 115 mls @ 400 mls/hr 04/08/21 11:00 04/09/21 11:01 Dextrose IV 400 mls/hr Q12HR JUSTIN Administration Midazolam HCl 100 mg/ Sodium 100 mls @ 1 mls/hr 04/08/21 13:00 04/09/21 06:23 Chloride IV 3 mg/hr TITR JUSTIN 3 mls/hr Titration Protocol 1 MG/HR Dextrose 1,000 mls @ 75 mls/hr 04/09/21 00:30 04/09/21 02:23 D10w IV 75 mls/hr DIRECT JUSTIN Administration Lorazepam 2 mg 04/08/21 12:00 Lorazepam 2 Mg/Ml Vial IV Q4HR PRN Agitation Midazolam HCl 2 mg 04/08/21 13:00 Midazolam 2 Mg/2 Ml Inj IV Q10MIN PRN Sedation Multi-Ingred Cream/Lotion/Oil/Oint 1 applic 04/07/21 16:29 Mineral Oil/Petrolatum, White Ophth Oint 3.5 Gm OU Q4HR PRN Dry Eye(s) Oxycodone/Acetaminophen 1 tab 04/07/21 18:44 Oxycodone /Acetaminophen 5-325mg Tab PO Q16H PRN Pain, Moderate (4-6) Senna/Docusate Sodium 1 tab 04/07/21 22:00 04/08/21 21:10 Sennosides/Docusate Sodium 8.6/50 Mg Tab FEEDTUBE 1 tab BID JUSTIN Administration Sodium Chloride 10 ml 04/07/21 22:00 04/09/21 11:01 Sodium Chloride 0.9% 10 Ml Flush Syringe IV 10 ml BID JUSTIN Administration Sodium Chloride 10 ml 04/07/21 18:44 Sodium Chloride 0.9% 10 Ml Flush Syringe IV PRN PRN LINE FLUSH
--- NOTE | 2021-04-09 14:27 | Progress Note ---
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 bid") - await transfer for continuous EEG monitoring - get MRI now re: ? acute process - resume AED's (will add Phenobarbital, Dilantin & Depakote for now) - use prn Ativan for witnessed sustained seizures - continue daily SAT and SBT assessment as tolerated - continue to wean supplemental oxygen for target O2 sat's > 90% acutely - VAP bundle addressed - continue lung protective strategies - continue bronchodilators with pulmonary hygiene per RT - wean per pulmonary driven protocols otherwise - avoid nephrotoxins, renally dose all medications - continue to avoid benzodiazepine's, reduce the possibility of delirium - AB's per ID rec's - prn analgesia per CPOT score - Maintenance of sleep-wake cycle, avoid delirium - continue enteral nutritional support at goal rate as tolerated - G.I. & VTE prophylaxis - PT/OT/ROM exercises - continue mobility protocols for pressure ulcer prophylaxis - Monitor hemodynamics closely - continue other care per attending / other consultants - discharge planning ongoing concurrently .... Re-evaluate in am & prn CONDITION: CRITICAL PROGNOSIS: GUARDED CODE STATUS: FULL CODE The high probability of a clinically significant, sudden or life-threatening deterioration of the [respiratory, cardiovascular & neurologic] system(s) required my full and direct attention, intervention and personal management. The aggregate critical care time was [38] minutes without overlap. Time includes spent on; [x] Data Review and interpretation [x] Patient assessment and monitoring of vital signs [x] Documentation [x] Medication orders and management Subjective Date of service: 04/09/21 Principal diagnosis: Acute respiratory failure; Acute epileptic & non-epileptic seizures Interval history: Patient is seen today for: Acute respiratory failure; Acute epileptic & non- epileptic seizures; Oropharyngeal dysphagia Seen and examined at bedside; 24hour events reviewed; nursing and respiratory care staff consulted; no adverse overnight events reported to me; resting peacefully in bed; had another episode of the seizure activity this morning; awaiting MRI; discussed care plan with neurologist Objective Vital Signs - 12hr 04/09/21 04/09/21 04/09/21 02:30 03:00 03:30 Temperature Pulse Rate 96 H 94 H 95 H Pulse Rate [ From Monitor] Respiratory 17 15 14 Rate Blood Pressure 86/47 98/52 101/57 O2 Sat by Pulse 100 100 100 Oximetry 04/09/21 04/09/21 04/09/21 04:00 04:15 04:30 Temperature 98.7 F Pulse Rate 91 H 98 H 102 H Pulse Rate [ From Monitor] Respiratory 15 16 Rate Blood Pressure 110/61 102/57 126/80 O2 Sat by Pulse 99 100 100 Oximetry 04/09/21 04/09/21 04/09/21 05:00 05:30 06:00 Temperature Pulse Rate 95 H 92 H 94 H Pulse Rate [ From Monitor] Respiratory 13 14 15 Rate Blood Pressure 105/62 105/58 112/54 O2 Sat by Pulse 100 99 100 Oximetry 04/09/21 04/09/21 04/09/21 06:30 07:00 07:26 Temperature 98.3 F Pulse Rate 101 H 99 H Pulse Rate [ From Monitor] Respiratory 12 Rate Blood Pressure 120/68 114/67 O2 Sat by Pulse 100 100 Oximetry 04/09/21 04/09/21 04/09/21 07:30 08:00 08:30 Temperature Pulse Rate 94 H 89 92 H Pulse Rate [ 89 From Monitor] Respiratory 11 L 14 12 Rate Blood Pressure 108/63 106/61 105/68 O2 Sat by Pulse 100 100 100 Oximetry 04/09/21 04/09/21 04/09/21 09:00 09:10 09:20 Temperature Pulse Rate 91 H 89 85 Pulse Rate [ From Monitor] Respiratory 26 H 12 Rate Blood Pressure 109/67 111/62 111/62 O2 Sat by Pulse 100 100 100 Oximetry 04/09/21 04/09/21 04/09/21 09:30 10:00 10:30 Temperature Pulse Rate 87 90 91 H Pulse Rate [ From Monitor] Respiratory 12 14 14 Rate Blood Pressure 120/81 117/74 111/75 O2 Sat by Pulse 100 100 100 Oximetry 04/09/21 04/09/21 04/09/21 11:00 11:30 11:50 Temperature 98.5 F Pulse Rate 88 89 Pulse Rate [ From Monitor] Respiratory 23 12 Rate Blood Pressure 108/71 109/66 O2 Sat by Pulse 99 100 Oximetry 04/09/21 04/09/21 12:00 12:40 Temperature Pulse Rate 77 101 H Pulse Rate [ 79 From Monitor] Respiratory 24 Rate Blood Pressure 110/68 120/73 O2 Sat by Pulse 100 100 Oximetry Constitutional: no acute distress, other (young male on MVS without dyssynchrony) Eyes: non-icteric ENT: oropharynx moist, other (ETT 24 cm DANIELLE) Neck: supple, no lymphadenopathy, no JVD Effort: normal Ascultation: Bilateral: clear Percussion: Bilateral: not dull Cardiovascular: regular rate and rhythm Gastrointestinal: normoactive bowel sounds, soft, non-tender, non-distended Integumentary: normal Extremities: no cyanosis, no edema, pulses normal, no ischemia or petechiae Neurologic: non-focal exam, pupils equal and round, CN II-XII normal, motor strength normal and Psychiatric: mood appropriate, affect normal CBC and BMP: 04/09/21 04:55 04/09/21 04:55 ABG, PT/INR, D-dimer: ABG ABG pH 7.383 pH Units (7.350-7.450) 04/09/21 04:30 ABG pCO2 39.5 mm Hg 04/09/21 04:30 ABG pO2 145.0 mm Hg (80.0-90.0) H 04/09/21 04:30 ABG O2 Saturation 98.8 % (95.0-99.0) 04/09/21 04:30 Abnormal lab findings: Abnormal Labs 04/07/21 04/07/21 04/07/21 15:51 16:28 16:28 RBC 5.06 H MCV 83 L MCH 26 L Lymph % (Auto) 6.0 L [place] % (Auto) 7.4 H Lymph # (Auto) 0.4 L Seg Neutrophils % 84.7 H ABG pO2 ABG O2 Saturation ABG Base Excess ABG Hemoglobin Oxyhemoglobin Sodium Potassium 3.4 L Carbon Dioxide 19 L BUN 8 L Glucose POC Glucose 106 H Calcium Alkaline Phosphatase 162 H Total Creatine Kinase 484 H Salicylates Acetaminophen 04/07/21 04/07/21 04/07/21 16:28 16:28 18:00 RBC MCV MCH Lymph % (Auto) [place] % (Auto) Lymph # (Auto) Seg Neutrophils % ABG pO2 390.1 H ABG O2 Saturation 99.6 H ABG Base Excess -2.2 L ABG Hemoglobin 13.1 L Oxyhemoglobin Sodium Potassium Carbon Dioxide BUN Glucose POC Glucose Calcium Alkaline Phosphatase Total Creatine Kinase Salicylates < 0.3 L Acetaminophen 5.0 L 04/08/21 04/08/21 04/08/21 04:19 04:19 04:30 RBC MCV 83 L MCH 26 L Lymph % (Auto) [place] % (Auto) 13.1 H Lymph # (Auto) 0.9 L Seg Neutrophils % ABG pO2 ABG O2 Saturation ABG Base Excess -2.2 L ABG Hemoglobin 13.4 L Oxyhemoglobin 94.8 L Sodium 136 L Potassium Carbon Dioxide 20 L BUN 7 L Glucose POC Glucose Calcium Alkaline Phosphatase 150 H Total Creatine Kinase Salicylates Acetaminophen 04/08/21 04/08/21 04/09/21 17:29 23:38 04:30 RBC MCV MCH Lymph % (Auto) [place] % (Auto) Lymph # (Auto) Seg Neutrophils % ABG pO2 145.0 H ABG O2 Saturation ABG Base Excess ABG Hemoglobin 11.9 L Oxyhemoglobin Sodium Potassium Carbon Dioxide BUN Glucose POC Glucose 56 L 56 L Calcium Alkaline Phosphatase Total Creatine Kinase Salicylates Acetaminophen 04/09/21 04/09/21 04/09/21 04:55 04:55 11:14 RBC MCV MCH 26 L Lymph % (Auto) [place] % (Auto) Lymph # (Auto) Seg Neutrophils % ABG pO2 ABG O2 Saturation ABG Base Excess ABG Hemoglobin Oxyhemoglobin Sodium Potassium Carbon Dioxide BUN 6 L Glucose 101 H POC Glucose 122 H Calcium 8.3 L Alkaline Phosphatase Total Creatine Kinase Salicylates Acetaminophen Chest x-ray: image reviewed Allied health notes reviewed: nursing
[2021-04-09] MEDS ORDERED: SODIUM BICARBONATE 325 MG TAB FEEDTUBE PRN (14:29)
[2021-04-09] MEDS ORDERED: LIPASE 10,500/PROTEASE 25,000/AMYLASE 43,750 (UNITS) DR CAP FEEDTUBE PRN (14:29)
[2021-04-09] MEDS ORDERED: SIMPLE SYRUP 15 ML FEEDTUBE PRN ×2 (14:29)
[2021-04-09] MEDS ORDERED: PHENobarbital 32.4 MG TAB PO STA (15:33)
--- NOTE | 2021-04-09 16:44 | Magnetic Resonance Report ---
MRI BRAIN WITHOUT CONTRAST INDICATION / CLINICAL INFORMATION: Seizure d/o. TECHNIQUE: Multiplanar, multisequence MR images of the brain were obtained. COMPARISON: Head CT on 04/07/2021 FINDINGS: BRAIN / INTRACRANIAL CONTENTS: No acute ischemia, acute hemorrhage, mass effect, midline shift, or hy drocephalus. No chronic infarct or significant atrophy. No significant demyelinating changes. CRANIOCERVICAL JUNCTION: No significant abnormality. VASCULAR FLOW-VOIDS: No significant abnormality. ORBITS: No significant abnormality of visualized orbits. SINUSES / MASTOIDS: Small amount fluid is seen in the sphenoid sinuses. ADDITIONAL FINDINGS: None. IMPRESSION: 1. No sequelae of seizures or findings to explain seizures. Signer Name: Prashanth Rivas MD Signed: 04/09/2021 4:40 PM Workstation Name: [id number]
--- NOTE | 2021-04-09 17:24 | Event Note ---
Date: 04/09/21 MRI negative restarted on AED cocktail - get ABG on SBT - extubate if acceptable thereafter
[2021-04-09] MEDS: SENNOSIDES/DOCUSATE SODIUM 8.6/50 MG TAB FEEDTUBE SCH (22:17)
[2021-04-09] MEDS: LACOSAMIDE 100 MG TAB PO SCH (22:17)
[2021-04-09] MEDS: carBAMazepine 200 MG TAB PO SCH (22:19)
[2021-04-09] MEDS: ENOXAPARIN 40 MG/0.4 ML INJ SUB-Q SCH (22:20)
--- NOTE | 2021-04-10 05:30 | XRay Report ---
XR chest 1V ap INDICATION / CLINICAL INFORMATION: follow up respiratory failure. COMPARISON: Radiograph from yesterday. FINDINGS: SUPPORT DEVICES: Interval extubation and removal of enteric catheter. HEART /PULMONARY VASCULATURE: No significant abnormality. LUNGS / PLEURA: Lungs are clear. No pneumothorax. IMPRESSION: Interval extubation. Otherwise, no significant interval change. No acute cardiopulmonary abnormality. Signer Name: Geremias Cruz MD Signed: 04/10/2021 5:26 AM Workstation Name: [id number]
[2021-04-10 05:35] LABS: Hematocrit 40.2 % (35.5-45.6); Hemoglobin 12.9 gm/dl (11.8-15.2); Mean Corpuscular HGB Conc 32 % (32-34); Mean Corpuscular Volume 82 fl (84-94); Platelet Count 165 K/mm3 (140-440); Red Cell Distribution Width 14.1 % (13.2-15.2)
[2021-04-10 05:39] LABS: Blood Urea Nitrogen 3 mg/dL (9-20); Hemolysis Index 4
[2021-04-10 05:55] LABS: BUN/Creatinine Ratio 4
[2021-04-10] MEDS ORDERED: POTASSIUM CHLORIDE 20 MEQ PACKET FEEDTUBE NR (08:00)
[2021-04-10] MEDS: levETIRAcetam 1,500 MG in DEXTROSE 5% IN WATER 100 ML IV SCH (11:32)
[2021-04-10] MEDS: LACOSAMIDE 100 MG TAB PO SCH ×2 (11:33→22:21)
[2021-04-10] MEDS: FAMOTIDINE 20 MG/2 ML INJ IV SCH ×2 (11:33→22:21)
[2021-04-10] MEDS: carBAMazepine 200 MG TAB PO SCH ×2 (11:33→22:21)
[2021-04-10] MEDS: SENNOSIDES/DOCUSATE SODIUM 8.6/50 MG TAB FEEDTUBE SCH ×2 (11:34→22:21)
--- NOTE | 2021-04-10 11:46 | Progress Note ---
Assessment and Plan Assessment and plan: This is a 20-year-old AA male with a known history of seizure admitted for witnessed seizure activities and acute respiratory failure requiring ventilatory support. Hospital Course to Date: 04/08/21- Patient is intubated and sedated. Was initially only on propofol and fentanyl gtt, RASS 0 to -1, following commands and appropriate. Attempted a SAT and SBT trial, patient appeared to have had possible seizure episodes witnessed by patient's sister who was at the bedside visiting at the time. Per patient's sister, patient was recently admitted and intubated in [place] for the same issue, records requested from [place]. Stat EEG completed, pending result. Versed gtt and IV Keppra added. Neurology on consult. 04/09/21- EEG full report/result is still pending. D/w CCM, per registered respiratory technician there was no evidence of seizure. Received patient records from [place], patient was recently D/C from the hospital on 03/25 where he was treated for epileptic & non-epileptic seizures. Patient was discharge on some antiepilectics drugs, sister to bring most current medications lists. Will restart on home meds once available. MRI brain is pending. [facility] recommends transferring patient to another facility for continuous EEG monitoring. Transfer process was initiated, awaiting response. 04/10/21- S/p extubation from overnight. Patient is fully AAOx4, on RA, in no acute distress. MRI result noted, no abnormal findings to explain the seizures. Trasnfer process is on hold, patient was denied for transfer by [place], [place] and [place] are in diversion at this time. Patient's home meds were restarted. Patient stable for transfer to the floor. Assessment and Plan #Status Epilepticus - S/p extubation, Fully AAO - No witness seizure like activity overnight - MRI brain with no sequelae of seizures or findings to explain seizures - Continue Keppra - Home AED was restarted - Continue Seizure precaution - Plan to transsfer patient to another facility for continuous EEG #Tachycardia - ST on the monitor - Normotensive - Will continue to monitor for now - Maintain adequate perfusion - Continue rehydration with cont. IVF - Continue blood pressure monitor per protocol - Maintain MAP above 65 #Acute Respiratory Failure - Intubated in the ED on 04/07 for airway protection - 04/09 s/p extubation - On RA, SPO2 at 100% - CCM consulted, appreciate recommendations - VAP bundle addressed - Aspiration precaution HOB above 30 - O2 supplementation on standby - Continue SPO2 monitoring for SPO2 goal above 92% #GI:NAP - Patient passed bedside swallow - Diet ordered - Continue PPI- Pepcid - IVF D/Rafal #Hyponatremia-imrpoved #Hypokalemia- improved - Prabably due to dehyradtion - Patient presented with low K - K 3.4, repleted - Strict intake and output - Avoid nephrotoxic medications; Renally dose medications - Bowie in place, low urine output in last 24hrs 213ml - Continue IVF D/C - Monitor and replace electrolytes as needed #VTE Prophylaxis - AC-Lovenox added - SCDs to bilateral lower extremities while in bed #Endo: Hypoglycemia - IVF D/C - Continue BG check Q6hrs - No SSI at this time - Avoid Hypoglycemia The high probability of a clinically significant, sudden or life threatening deterioration of the [Neuro, GI, Endo] system(s) required my full and direct attention, intervention and personal management. The aggregate critical care time was [60] minutes. This time is in addition to time spent performing reported procedures but includes the following: [x] Data Review and interpretation [x] Patient assessment and monitoring of vital signs [x] Documentation [x] Medication orders and management Disposition Plan: ICU Total Time Spent with Patient (Minutes): 60 History Interval history: Patient seen and examined at the bedside. S/p extubation, fully AAO, on RA, and appropriate. RANJIT overnight Hospitalist Physical - Constitutional Vitals: Temp Pulse Resp BP Pulse Ox 98.2 F 96 H 18 118/83 98 04/10/21 08:00 04/10/21 11:00 04/10/21 11:00 04/10/21 11:00 04/10/21 11:00 General appearance: Present: no acute distress, mild distress, other (Intubated and sedated) - EENT Eyes: Present: PERRL, EOM intact ENT: hearing intact, clear oral mucosa - Neck Neck: Present: normal ROM - Respiratory Respiratory effort: normal Respiratory: bilateral: CTA - Cardiovascular Rhythm: regular Heart Sounds: Present: S1 & S2 - Extremities Extremities: no ischemia, pulses intact, pulses symmetrical Peripheral Pulses: within normal limits - Abdominal General gastrointestinal: soft, non-tender, normal bowel sounds - Integumentary Integumentary: Present: clear, warm, dry - Psychiatric Psychiatric: appropriate mood/affect - Neurologic Neurologic: CNII-XII intact, moves all extremities - Allied Health Allied health notes reviewed: nursing Results - Labs CBC & Chem 7: 04/10/21 04:06 04/10/21 04:06 Labs: Laboratory Last Values WBC 6.3 K/mm3 (4.5-11.0) 04/10/21 04:06 RBC 4.90 M/mm3 (3.65-5.03) 04/10/21 04:06 Hgb 12.9 gm/dl (11.8-15.2) 04/10/21 04:06 Hct 40.2 % (35.5-45.6) 04/10/21 04:06 MCV 82 fl (84-94) L 04/10/21 04:06 MCH 26 pg (28-32) L 04/10/21 04:06 MCHC 32 % (32-34) 04/10/21 04:06 RDW 14.1 % (13.2-15.2) 04/10/21 04:06 Plt Count 165 K/mm3 (140-440) 04/10/21 04:06 Lymph % (Auto) 14.7 % (13.4-35.0) 04/08/21 04:19 [place] % (Auto) 13.1 % (0.0-7.3) H 04/08/21 04:19 Eos % (Auto) 1.8 % (0.0-4.3) 04/08/21 04:19 Baso % (Auto) 0.4 % (0.0-1.8) 04/08/21 04:19 Lymph # (Auto) 0.9 K/mm3 (1.2-5.4) L 04/08/21 04:19 [place] # (Auto) 0.8 K/mm3 (0.0-0.8) 04/08/21 04:19 Eos # (Auto) 0.1 K/mm3 (0.0-0.4) 04/08/21 04:19 Baso # (Auto) 0.0 K/mm3 (0.0-0.1) 04/08/21 04:19 Seg Neutrophils % 70.0 % (40.0-70.0) 04/08/21 04:19 Seg Neutrophils # 4.5 K/mm3 (1.8-7.7) 04/08/21 04:19 ABG pH 7.409 (7.320-7.450) 04/09/21 17:45 POC ABG pCO2 40.4 mmHg (32.0-48.0) 04/09/21 17:45 ABG pCO2 39.5 mm Hg 04/09/21 04:30 POC ABG pO2 107.2 mmHg (83-108) 04/09/21 17:45 ABG pO2 145.0 mm Hg (80.0-90.0) H 04/09/21 04:30 POC ABG HCO3 25.0 04/09/21 17:45 ABG HCO3 23.0 mmol/L (20.0-26.0) 04/09/21 04:30 ABG O2 Saturation 98.5 (0-100) 04/09/21 17:45 ABG O2 Content 16.5 (0.0-44) 04/09/21 04:30 POC ABG Base Excess 0.3 04/09/21 17:45 ABG Base Excess -1.8 mmol/L (-2.0-3.0) 04/09/21 04:30 ABG Hemoglobin 13.0 (12.0-17.5) 04/09/21 17:45 ABG Oxyhemoglobin 97.6 (94-98) 04/09/21 17:45 ABG Carboxyhemoglobin 1.4 % (0.0-5.0) 04/09/21 04:30 ABG Methemoglobin 0.3 (0.0-1.5) 04/09/21 17:45 ABG Sodium 133.4 mmol/L (136.0-145.0) L 04/09/21 17:45 ABG Potassium 3.6 mmol/L (3.40-4.50) 04/09/21 17:45 ABG Chloride 102.0 mmol/L (98-107) 04/09/21 17:45 ABG Glucose 103 mg/dL (65-95) H 04/09/21 17:45 Oxyhemoglobin 96.9 % (95.0-99.0) 04/09/21 04:30 Carboxyhemoglobin 0.6 (0.5-1.5) 04/09/21 17:45 FiO2 30 % 04/09/21 04:30 FiO2 % 30 04/09/21 17:45 Sodium 140 mmol/L (137-145) 04/10/21 04:06 Potassium 3.4 mmol/L (3.6-5.0) L 04/10/21 04:06 Chloride 104.0 mmol/L (98-107) 04/10/21 04:06 Carbon Dioxide 24 mmol/L (22-30) 04/10/21 04:06 Anion Gap 15 mmol/L 04/10/21 04:06 BUN 3 mg/dL (9-20) L 04/10/21 04:06 Creatinine 0.7 mg/dL (0.8-1.3) L 04/10/21 04:06 Estimated GFR > 60 ml/min 04/10/21 04:06 BUN/Creatinine Ratio 4 % 04/10/21 04:06 Glucose 101 mg/dL (75-100) H 04/10/21 04:06 POC Glucose 109 mg/dL (70-105) H 04/10/21 05:20 Calcium 9.0 mg/dL (8.4-10.2) 04/10/21 04:06 Phosphorus 2.80 mg/dL (2.5-4.5) 04/09/21 04:55 Magnesium 1.90 mg/dL (1.7-2.3) 04/09/21 04:55 Total Bilirubin 0.30 mg/dL (0.1-1.2) 04/08/21 04:19 AST 23 units/L (5-40) 04/08/21 04:19 ALT 14 units/L (7-56) 04/08/21 04:19 Alkaline Phosphatase 150 units/L (35-129) H 04/08/21 04:19 Total Creatine Kinase 484 units/L (55-170) H 04/07/21 16:28 Total Protein 6.7 g/dL (6.3-8.2) 04/08/21 04:19 Albumin 3.9 g/dL (3.9-5) 04/08/21 04:19 Albumin/Globulin Ratio 1.4 % 04/08/21 04:19 Triglycerides 76 mg/dL (2-149) 04/10/21 04:06 TSH 1.370 mlU/mL (0.270-4.200) 04/07/21 16:28 Arterial Blood Glucose 103 mg/dL (65-95) H 04/09/21 17:45 Arterial Blood Ionized Calcium 4.6 mg/dL (4.6-5.3) 04/09/21 17:45 Urine Color Yellow (Yellow) 04/07/21 Unknown Urine Turbidity Cloudy (Clear) 04/07/21 Unknown Urine pH 6.0 (5.0-7.0) 04/07/21 Unknown Ur Specific [place] 1.021 (1.003-1.030) 04/07/21 Unknown Urine Protein 100 mg/dl mg/dL (Negative) 04/07/21 Unknown Urine Glucose (UA) Neg mg/dL (Negative) 04/07/21 Unknown Urine Ketones Neg mg/dL (Negative) 04/07/21 Unknown Urine Blood Neg (Negative) 04/07/21 Unknown Urine Nitrite Neg (Negative) 04/07/21 Unknown Urine Bilirubin Neg (Negative) 04/07/21 Unknown Urine Urobilinogen < 2.0 mg/dL (<2.0) 04/07/21 Unknown Ur Leukocyte Esterase Neg (Negative) 04/07/21 Unknown Urine WBC (Auto) 2.0 /HPF (0.0-6.0) 04/07/21 Unknown Urine RBC (Auto) 5.0 /HPF (0.0-6.0) 04/07/21 Unknown U Epithel Cells (Auto) 1.0 /HPF (0-13.0) 04/07/21 Unknown Urine Mucus 2+ /HPF 04/07/21 Unknown Salicylates < 0.3 mg/dL (2.8-20.0) L 04/07/21 16:28 Urine Opiates Screen Negative 04/07/21 Unknown Urine Methadone Screen Negative 04/07/21 Unknown Acetaminophen 5.0 ug/mL (10.0-30.0) L 04/07/21 16:28 Ur Barbiturates Screen Positive 04/07/21 Unknown Ur Phencyclidine Scrn Negative 04/07/21 Unknown Ur Amphetamines Screen Negative 04/07/21 Unknown U Benzodiazepines Scrn Negative 04/07/21 Unknown Urine Cocaine Screen Negative 04/07/21 Unknown U Marijuana (THC) Screen Positive 04/07/21 Unknown Drugs of Abuse Note Disclamer 04/07/21 Unknown Plasma/Serum Alcohol < 0.01 % (0-0.07) 04/07/21 16:28 [place]/IV: Voiding Method Urinal Active Medications - Current Medications Current Medications: Generic Name Dose Route Start Last Admin Trade Name Freq PRN Reason Stop Dose Admin Acetaminophen 650 mg 04/07/21 18:44 Acetaminophen 650 Mg Rect Supp CA Q6H PRN Pain MILD(1-3)/Fever >100.5/FRANCIS Albuterol 2.5 mg 04/07/21 18:44 Albuterol 2.5 Mg/3 Ml Nebu IH Q3HRT PRN Shortness Of Breath Lipase/Protease/Amylase 1 each 04/09/21 14:29 Lipase 10,500/Protease 25,000/Amylase 43,750 (Units) Dr Haile FEEDTUBE PRN PRN For Clogged Feeding Tube Carbamazepine 600 mg 04/09/21 16:00 04/10/21 11:33 Carbamazepine 200 Mg Tab PO 600 mg BID JUSTIN Administration Dextrose 50 ml 04/08/21 07:36 04/08/21 23:48 Dextrose 50% In Water (25gm) 50 Ml Syringe IV 20 ml Q30MIN PRN Administration Hypoglycemia Protocol Enoxaparin Sodium 40 mg 04/08/21 22:00 04/09/21 22:20 Enoxaparin 40 Mg/0.4 Ml Inj SUB-Q 40 mg QDAY@2200 JUSTIN Administration Protocol Famotidine 20 mg 04/07/21 22:00 04/10/21 11:33 Famotidine 20 Mg/2 Ml Inj IV 20 mg BID JSUTIN Administration Fentanyl 50 mcg 04/07/21 16:29 04/07/21 18:43 Fentanyl 100 Mcg/2 Ml Inj IV 50 mcg Q10MIN PRN Administration ANALGESIA Haloperidol Lactate 5 mg 04/08/21 12:00 Haloperidol Lactate 5 Mg/1 Ml Inj IV Q6HR PRN Agitation Hydromorphone HCl 0.5 mg 04/07/21 18:44 Hydromorphone 1 Mg/1 Ml Inj IV Q23H PRN Pain , Severe (7-10) Hydrophilic Ointment 1 applic 04/07/21 16:29 Lip Therapy Vaseline TP Q2HR PRN Dry Lips Propofol 1,000 mg in 100 mls @ 13.064 mls/hr 04/07/21 17:00 04/09/21 13:50 Diprivan 10 Mg/Ml IV 20 mcg/kg/min TITR JUSTIN 8.709 mls/hr Administration Protocol 30 MCG/KG/MIN Fentanyl Citrate 2,000 mcg in 100 mls @ 3.629 mls/hr 04/07/21 17:00 04/09/21 03:34 Fentanyl Drip Premix IV 1 mcg/kg/hr TITR JUSTIN 3.629 mls/hr Administration Protocol 1 MCG/KG/HR Levetiracetam 1,500 mg/ 115 mls @ 400 mls/hr 04/08/21 11:00 04/10/21 11:32 Dextrose IV 400 mls/hr Q12HR JUSTIN Administration Midazolam HCl 100 mg/ Sodium 100 mls @ 1 mls/hr 04/08/21 13:00 04/09/21 06:23 Chloride IV 3 mg/hr TITR JUSTIN 3 mls/hr Titration Protocol 1 MG/HR Dextrose 1,000 mls @ 75 mls/hr 04/09/21 00:30 04/09/21 22:29 D10w IV 75 mls/hr DIRECT JUSTIN Administration Lacosamide 200 mg 04/09/21 16:00 04/10/21 11:33 Lacosamide 100 Mg Tab PO 200 mg Q12HR JUSTIN Administration Lorazepam 2 mg 04/08/21 12:00 Lorazepam 2 Mg/Ml Vial IV Q4HR PRN Agitation Midazolam HCl 2 mg 04/08/21 13:00 Midazolam 2 Mg/2 Ml Inj IV Q10MIN PRN Sedation Multi-Ingred Cream/Lotion/Oil/Oint 1 applic 04/07/21 16:29 Mineral Oil/Petrolatum, White Ophth Oint 3.5 Gm OU Q4HR PRN Dry Eye(s) Oxycodone/Acetaminophen 1 tab 04/07/21 18:44 Oxycodone /Acetaminophen 5-325mg Tab PO Q16H PRN Pain, Moderate (4-6) Senna/Docusate Sodium 1 tab 04/07/21 22:00 04/10/21 11:34 Sennosides/Docusate Sodium 8.6/50 Mg Tab FEEDTUBE 1 tab BID JUSTIN Administration Simple Syrup 15 ml 04/09/21 14:29 Simple Syrup 15 Ml FEEDTUBE PRN PRN Hypoglycemia Simple Syrup 30 ml 04/09/21 14:29 Simple Syrup 15 Ml FEEDTUBE PRN PRN Hypoglycemia Sodium Bicarbonate 325 mg 04/09/21 14:29 Sodium Bicarbonate 325 Mg Tab FEEDTUBE PRN PRN For Clogged Feeding Tube Sodium Chloride 10 ml 04/07/21 22:00 04/10/21 11:32 Sodium Chloride 0.9% 10 Ml Flush Syringe IV 10 ml BID JUSTIN Administration Sodium Chloride 10 ml 04/07/21 18:44 Sodium Chloride 0.9% 10 Ml Flush Syringe IV PRN PRN LINE FLUSH Nutrition/Malnutrition Assess - Dietary Evaluation Nutrition/Malnutrition Findings: Nutrition Notes Start: 04/09/21 13:51 Freq: Status: Active Protocol: Document 04/09/21 13:51 CORRIE (Rec: 04/09/21 14:29 CORRIE [id number]) Nutrition Notes Need for Assessment generated from: MD Order Initial or Follow up Assessment Current Diagnosis Respiratory Failure Other Pertinent Diagnosis Status Epilepticus, Tachycardia, Acute Encephalopathy. Current Diet NPO (since 04/07 18:45), TF- Jevity 1,2 Sukhdev @ 76 ml/hr ( since D 04/09). Labs/Tests 04/09: BUN 6, Gl;u 101, Ca 8.3 . Pertinent Medications 04/09: D10w 1000 ml @ 75 ml/hr , Propofol 1000 mg in 100 ml @ 13.064 ml/hr, others nutritionally unremarkable. Height 5 ft 8 in Weight 72.575 kg [place] Body Weight (kg) 70.00 BMI 24.3 Weight Status Appropriate Subjective/Other Information RD consult to evaluate nutritional intake. Pt on mechanical ventilation and sedated. Swallow screen test failed. NGT placed. TF- Jevity 1,2 Sukhdev @ 76 ml/hr ordered. Percent of energy/protein needs met: Pt currently on NPO. Prescribed TF- Jevity 1,2 Sukhdev Diet provides for energy/ protein needs (2,177 Kcal/101 g) during LOS 100% Kcal; 100% AA. Burn Absent Trauma Absent GI Symptoms None Difficulty In Swallowing Food Allergy No Skin Integrity/Comment Clear, warm, dry. Current % PO Other Minimum of two criteria No #1 Nutrition Diagnosis Inadequate oral intake, Inadequate protein-energy intake,Swallowing difficulty Etiology Pt sedated and on mechanical ventilation. As Evidenced by Signs and Symptoms NGT placed, swallow screen test failed, MD request for evaluation of nutritional intake. Is patient on ventilator? Yes Is Patient Ambulatory and/or Out of Bed No REE-([place]-confined to bed) 2052.344 Kcal/Kg value to use for calculation 30 Approximate Energy Requirements Using 2177 kcal/Kg Calculation Used for Recommendations Kcal/kg Additional Notes Protein: 1.2-1.5 g/Kg; 88-110 g/day (from IBW + critical care). Fluids: 1 ml/Kcal, or as per MD. Nutrition Intervention Change Diet Order: Continue NPO as per MD; when pertinent, advance to TF. Nutrition Support: Jevity 1.2 Sukhdev @ 79 ml/hr. Flush: 119 ml water Q 4 hr, Kcal 2,177 Protein (gm) 101 Carbohydrates (gm) 307 Fat (gm) 71 Fluid (mL) 1,464 Fiber (gm) 33 % RDI: 100% Kcal; 100% AA. Goal #1 Maintain body weight within +/ -3% of admission BWt during LOS. Goal #2 Reach and maintain acceptable chemistry lab values during LOS. Follow-Up By: 04/11/21 Additional Comments Continue monitoring Hydration, and BM; when pertinent TF tolerance.
--- NOTE | 2021-04-10 12:18 | Progress Note ---
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 bid") - MRI is negative for acute or chronic process - continue AED's (adjust per neurology recommendations) - use prn Ativan for witnessed sustained seizures - transfer to medical floor ok - continue care as below otherwise; - prn supplemental oxygen for target O2 sat's > 90% acutely - aspiration precautions - prn bronchodilators with pulmonary hygiene per RT - avoid nephrotoxins, renally dose all medications - prn analgesia per pain score - Maintenance of sleep-wake cycle, avoid delirium - G.I. & VTE prophylaxis - PT/OT/ROM exercises - mobility protocols for pressure ulcer prophylaxis - Monitor hemodynamics closely - continue other care per attending / other consultants - discharge planning ongoing concurrently .... Re-evaluate in am & prn Subjective Date of service: 04/10/21 Principal diagnosis: Acute respiratory failure; Acute epileptic & non-epileptic seizures Interval history: Patient is seen today for: Acute respiratory failure; Acute epileptic & non- epileptic seizures; Oropharyngeal dysphagia Seen and examined at bedside; 24hour events reviewed; nursing and respiratory care staff consulted; no adverse overnight events reported to me; resting peacefully in bed; has done well post extubation and without recurrent seizures Objective Vital Signs - 12hr 04/10/21 04/10/21 04/10/21 00:30 01:00 01:30 Temperature Pulse Rate 91 H 87 80 Pulse Rate [ From Monitor] Respiratory 16 17 21 Rate Blood Pressure 109/64 103/76 108/56 O2 Sat by Pulse 97 99 100 Oximetry 04/10/21 04/10/21 04/10/21 02:00 02:30 03:00 Temperature Pulse Rate 81 85 89 Pulse Rate [ From Monitor] Respiratory 20 16 17 Rate Blood Pressure 100/62 109/77 116/84 O2 Sat by Pulse 100 99 96 Oximetry 04/10/21 04/10/21 04/10/21 03:30 04:00 04:30 Temperature 97.9 F Pulse Rate 85 87 78 Pulse Rate [ 77 From Monitor] Respiratory 16 11 L 20 Rate Blood Pressure 113/80 114/75 119/74 O2 Sat by Pulse 97 100 98 Oximetry 04/10/21 04/10/21 04/10/21 05:00 05:30 06:00 Temperature Pulse Rate 77 85 79 Pulse Rate [ From Monitor] Respiratory 15 21 19 Rate Blood Pressure 118/75 110/73 110/65 O2 Sat by Pulse 96 94 96 Oximetry 04/10/21 04/10/21 04/10/21 06:30 07:00 07:30 Temperature Pulse Rate 77 79 81 Pulse Rate [ From Monitor] Respiratory 22 20 21 Rate Blood Pressure 99/54 95/59 92/60 O2 Sat by Pulse 95 95 Oximetry 04/10/21 04/10/21 04/10/21 07:34 08:00 08:30 Temperature 98.2 F Pulse Rate 85 82 Pulse Rate [ From Monitor] Respiratory 20 11 L Rate Blood Pressure 104/69 117/85 O2 Sat by Pulse 96 96 26 L Oximetry 04/10/21 04/10/21 04/10/21 08:31 09:00 09:30 Temperature Pulse Rate 90 83 Pulse Rate [ 85 From Monitor] Respiratory 14 15 20 Rate Blood Pressure 115/83 119/83 O2 Sat by Pulse 95 99 98 Oximetry 04/10/21 04/10/21 04/10/21 10:00 10:30 11:00 Temperature Pulse Rate 117 H 103 H 96 H Pulse Rate [ From Monitor] Respiratory 20 20 18 Rate Blood Pressure 106/85 124/75 118/83 O2 Sat by Pulse 95 99 98 Oximetry Constitutional: no acute distress Eyes: non-icteric ENT: oropharynx moist Neck: supple, no lymphadenopathy, no JVD Effort: normal Ascultation: Bilateral: clear Percussion: Bilateral: not dull Cardiovascular: regular rate and rhythm Gastrointestinal: normoactive bowel sounds, soft, non-tender, non-distended Integumentary: normal Extremities: no cyanosis, no edema, pulses normal, no ischemia or petechiae Neurologic: non-focal exam, pupils equal and round, CN II-XII normal, motor strength normal and Psychiatric: mood appropriate, affect normal CBC and BMP: 04/10/21 04:06 04/10/21 04:06 ABG, PT/INR, D-dimer: ABG ABG pH 7.409 (7.320-7.450) 04/09/21 17:45 POC ABG pCO2 40.4 mmHg (32.0-48.0) 04/09/21 17:45 ABG pCO2 39.5 mm Hg 04/09/21 04:30 POC ABG pO2 107.2 mmHg (83-108) 04/09/21 17:45 ABG pO2 145.0 mm Hg (80.0-90.0) H 04/09/21 04:30 POC ABG HCO3 25.0 04/09/21 17:45 ABG O2 Saturation 98.5 (0-100) 04/09/21 17:45 Abnormal lab findings: Abnormal Labs 04/07/21 04/07/21 04/07/21 15:51 16:28 16:28 RBC 5.06 H MCV 83 L MCH 26 L Lymph % (Auto) 6.0 L [place] % (Auto) 7.4 H Lymph # (Auto) 0.4 L Seg Neutrophils % 84.7 H ABG pO2 ABG O2 Saturation ABG Base Excess ABG Hemoglobin ABG Sodium ABG Glucose Oxyhemoglobin Sodium Potassium 3.4 L Carbon Dioxide 19 L BUN 8 L Creatinine Glucose POC Glucose 106 H Calcium Alkaline Phosphatase 162 H Total Creatine Kinase 484 H Arterial Blood Glucose Salicylates Acetaminophen 04/07/21 04/07/21 04/07/21 16:28 16:28 18:00 RBC MCV MCH Lymph % (Auto) [place] % (Auto) Lymph # (Auto) Seg Neutrophils % ABG pO2 390.1 H ABG O2 Saturation 99.6 H ABG Base Excess -2.2 L ABG Hemoglobin 13.1 L ABG Sodium ABG Glucose Oxyhemoglobin Sodium Potassium Carbon Dioxide BUN Creatinine Glucose POC Glucose Calcium Alkaline Phosphatase Total Creatine Kinase Arterial Blood Glucose Salicylates < 0.3 L Acetaminophen 5.0 L 04/08/21 04/08/21 04/08/21 04:19 04:19 04:30 RBC MCV 83 L MCH 26 L Lymph % (Auto) [place] % (Auto) 13.1 H Lymph # (Auto) 0.9 L Seg Neutrophils % ABG pO2 ABG O2 Saturation ABG Base Excess -2.2 L ABG Hemoglobin 13.4 L ABG Sodium ABG Glucose Oxyhemoglobin 94.8 L Sodium 136 L Potassium Carbon Dioxide 20 L BUN 7 L Creatinine Glucose POC Glucose Calcium Alkaline Phosphatase 150 H Total Creatine Kinase Arterial Blood Glucose Salicylates Acetaminophen 04/08/21 04/08/21 04/09/21 17:29 23:38 04:30 RBC MCV MCH Lymph % (Auto) [place] % (Auto) Lymph # (Auto) Seg Neutrophils % ABG pO2 145.0 H ABG O2 Saturation ABG Base Excess ABG Hemoglobin 11.9 L ABG Sodium ABG Glucose Oxyhemoglobin Sodium Potassium Carbon Dioxide BUN Creatinine Glucose POC Glucose 56 L 56 L Calcium Alkaline Phosphatase Total Creatine Kinase Arterial Blood Glucose Salicylates Acetaminophen 04/09/21 04/09/21 04/09/21 04:55 04:55 11:14 RBC MCV MCH 26 L Lymph % (Auto) [place] % (Auto) Lymph # (Auto) Seg Neutrophils % ABG pO2 ABG O2 Saturation ABG Base Excess ABG Hemoglobin ABG Sodium ABG Glucose Oxyhemoglobin Sodium Potassium Carbon Dioxide BUN 6 L Creatinine Glucose 101 H POC Glucose 122 H Calcium 8.3 L Alkaline Phosphatase Total Creatine Kinase Arterial Blood Glucose Salicylates Acetaminophen 04/09/21 04/09/21 04/10/21 17:45 23:33 04:06 RBC MCV 82 L MCH 26 L Lymph % (Auto) [place] % (Auto) Lymph # (Auto) Seg Neutrophils % ABG pO2 ABG O2 Saturation ABG Base Excess ABG Hemoglobin ABG Sodium 133.4 L ABG Glucose 103 H Oxyhemoglobin Sodium Potassium Carbon Dioxide BUN Creatinine Glucose POC Glucose 111 H Calcium Alkaline Phosphatase Total Creatine Kinase Arterial Blood Glucose 103 H Salicylates Acetaminophen 04/10/21 04/10/21 04:06 05:20 RBC MCV MCH Lymph % (Auto) [place] % (Auto) Lymph # (Auto) Seg Neutrophils % ABG pO2 ABG O2 Saturation ABG Base Excess ABG Hemoglobin ABG Sodium ABG Glucose Oxyhemoglobin Sodium Potassium 3.4 L Carbon Dioxide BUN 3 L Creatinine 0.7 L Glucose 101 H POC Glucose 109 H Calcium Alkaline Phosphatase Total Creatine Kinase Arterial Blood Glucose Salicylates Acetaminophen Allied health notes reviewed: nursing
[2021-04-10] MEDS ORDERED: HALOPERIDOL LACTATE 5 MG/1 ML INJ IM PRN (14:00)
[2021-04-10] MEDS: ENOXAPARIN 40 MG/0.4 ML INJ SUB-Q SCH (22:21)
[2021-04-11] MEDS: levETIRAcetam 1,500 MG in DEXTROSE 5% IN WATER 100 ML IV SCH ×2 (00:01→09:14)
[2021-04-11 05:07] LABS: Hemoglobin 13.2 gm/dl (11.8-15.2); Mean Corpuscular HGB Conc 32 % (32-34); Mean Corpuscular Volume 82 fl (84-94); Platelet Count 189 K/mm3 (140-440); Red Blood Count 5.13 M/mm3 (3.65-5.03); Red Cell Distribution Width 14.1 % (13.2-15.2)
[2021-04-11 05:22] LABS: BUN/Creatinine Ratio 9; Blood Urea Nitrogen 7 mg/dL (9-20); Calcium 9.2 mg/dL (8.4-10.2); Hemolysis Index 3
[2021-04-11 06:29] VITALS: BP 108/71
--- NOTE | 2021-04-11 07:58 | Discharge Summary ---
Providers - Providers Date of Admission: 04/07/21 18:44 Date of discharge: 04/11/21 Attending physician: SONNY LOPEZ 04/07/21 16:29 Consult to Physician [CONS] Urgent Comment: Consulting Provider: ANTWON BASS Physician Instructions: Reason For Exam: vent management 04/07/21 16:30 Consult to Dietitian/Nutrition [CONS] Routine Physician Instructions: Reason For Exam: Reason for Consult: Evaluate nutritional intake 04/08/21 07:16 Consult to Physician [CONS] Routine Comment: dr. bass spoke to him/ sammie Consulting Provider: DENAE LEONE Physician Instructions: Reason For Exam: status epilepticus Primary care physician: [facility] Hospitalization Reason for admission: sz d/o Condition: Critical Hospital course: This is a 20-year-old AA male with a known history of seizure admitted for witnessed seizure activities and acute respiratory failure requiring ventilatory support. The admission diagnosis and hospital course by diagnoses listed below #Seizure disorder - S/p extubation, Fully AAO - MRI brain with no sequelae of seizures or findings to explain seizures - Continue Keppra - Home AED was restarted - Continue Seizure precaution - Plan to transsfer patient to another facility for continuous EEG #Acute Respiratory Failure - Intubated in the ED on 04/07 for airway protection - 04/09 s/p extubation - On RA, SPO2 at 100% #Hyponatremia-imrpoved #Hypokalemia- improved - Prabably due to dehyradtion - Patient presented with low K - K 3.4, repleted - Strict intake and output - Avoid nephrotoxic medications; Renally dose medications Hospital Course to Date: 04/08/21- Patient is intubated and sedated. Was initially only on propofol and fentanyl gtt, RASS 0 to -1, following commands and appropriate. Attempted a SAT and SBT trial, patient appeared to have had possible seizure episodes witnessed by patient's sister who was at the bedside visiting at the time. Per patient's sister, patient was recently admitted and intubated in [place] for the same issue, records requested from [place]. Stat EEG completed, pending result. Versed gtt and IV Keppra added. Neurology on consult. 04/09/21- EEG full report/result is still pending. D/w CCM, per master technician there was no evidence of seizure. Received patient records from [place], patient was recently D/C from the hospital on 03/25 where he was treated for epileptic & non-epileptic seizures. Patient was discharge on some antiepilectics drugs, sister to bring most current medications lists. Will restart on home meds once available. MRI brain is pending. [facility] recommends transferring patient to another facility for continuous EEG monitoring. Transfer process was initiated, awaiting response. 04/10/21- S/p extubation from overnight. Patient is fully AAOx4, on RA, in no acute distress. MRI result noted, no abnormal findings to explain the seizures. Trasnfer process is on hold, patient was denied for transfer by [place], [facility] and [facility] are in diversion at this time. Patient's home meds were restarted. Patient stable for transfer to the floor. 04/11/2021. Patient has had no seizure activity. EEG was negative for seizure activity. Patient is on room air satting 100%. Patient is felt to have received maximal hospital benefit and will be discharged home. Dedicated discharge time 35 minutes. Disposition: 01 HOME / SELF CARE / HOMELESS Final Discharge Diagnosis (Prints w/discharge instructions): Seizure disorder, acute hypoxic respiratory failure Core Measure Documentation - Palliative Care Palliative Care/ Comfort Measures: Not Applicable - Core Measures Any of the following diagnoses?: none Exam - Constitutional Vitals: Temp Pulse Resp BP Pulse Ox 98.8 F 78 16 108/71 96 04/11/21 05:51 04/11/21 05:51 04/11/21 05:51 04/11/21 05:51 04/11/21 05:51 General appearance: Present: no acute distress, well-nourished - EENT Eyes: Present: PERRL ENT: hearing intact, clear oral mucosa - Neck Neck: Present: supple, normal ROM - Respiratory Respiratory effort: normal Respiratory: bilateral: CTA - Cardiovascular Heart Sounds: Present: S1 & S2. Absent: rub, click - Extremities Extremities: pulses symmetrical, No edema Peripheral Pulses: within normal limits - Abdominal General gastrointestinal: Present: soft, non-tender, non-distended, normal bowel sounds Male genitourinary: Present: normal - Integumentary Integumentary: Present: clear, warm, dry - Musculoskeletal Musculoskeletal: gait normal, strength equal bilaterally - Psychiatric Psychiatric: appropriate mood/affect, intact judgment & insight - Neurologic Neurologic: CNII-XII intact, moves all extremities Plan Activity: advance as tolerated, no driving until cleared by PCP Weight Bearing Status: Weight Bear as Tolerated Diet: regular Additional Instructions: No driving until cleared by PCP or neurology Follow up with: PRIMARY CARE, [Primary Care Provider] - 3-5 Days DENAE LEONE MD [Staff Physician] - 7 Days Prescriptions: levETIRAcetam [Keppra TAB] 1,500 mg PO BID #60 tablet carBAMazepine [TEGretol] 600 mg PO BID #60 tablet Lacosamide [Vimpat] 200 mg PO Q12HR #60 tablet
[2021-04-11] MEDS: FAMOTIDINE 20 MG/2 ML INJ IV SCH (09:12)
[2021-04-11] MEDS: carBAMazepine 200 MG TAB PO SCH (09:13)
[2021-04-11] MEDS: LACOSAMIDE 100 MG TAB PO SCH (09:13)
== END 2021-04-11 10:06 | disposition home or self-care (01) | DRG 208 ==
LOC: ED 15:34 → CC1 18:44 → 3A 04-10 17:51
PROVIDERS: ADMIT Internal Medicine; ATTEND Hospitalist
PROC: 5A1945Z Respiratory Ventilation, 24-96 Consecutive Hours (ICD-10-PCS; principal; 2021-04-07)
PROC: 0BH17EZ Insertion of Endotracheal Airway into Trachea, Via Natural or Artificial Opening (ICD-10-PCS; 2021-04-07)
PROC: 4A033R1 Measurement of Arterial Saturation, Peripheral, Percutaneous Approach (ICD-10-PCS; 2021-04-09)
DX: J96.01 Acute respiratory failure with hypoxia (principal); G93.40 Encephalopathy, unspecified; E87.1 Hypo-osmolality and hyponatremia; E87.2 Acidosis; G40.901 Epilepsy, unspecified, not intractable, with status epilepticus; E87.6 Hypokalemia; E86.0 Dehydration; Z82.49 Family history of ischemic heart disease and other diseases of the circulatory system; R00.0 Tachycardia, unspecified; E16.2 Hypoglycemia, unspecified; R13.12 Dysphagia, oropharyngeal phase
CPT/HCPCS: 36415; 36600; 70450; 70496; 70498; 70551; 71045; 74018; 80048; 80053; 80307; 80320; 81001; 82550; 82803; 82805; 82962; 83735; 84100; 84443; 84478; 85025; 85027; 87070; 87205; 93005; 94002; 94003; 94760; 95819; 99291; G0378; J3490; J7060; J7070; J7120; Q0162; G0480; J1200; J1630; J1650; J1953; J2060; J2250; J2704; J3010; J3480; J3486; J7030; Q9967